=== PATIENT | male | born 1975 | race Caucasian/White ===

== ENCOUNTER 2018-02-08 18:49 | Inpatient (IN) | payer MEDICARE, OTHER ==
[2018-02-08] MEDS ORDERED: SODIUM CHLORIDE 0.9% 1,000 ML IV STA (19:03)
[2018-02-08] MEDS ORDERED: ALPRAZolam 1 MG TAB PO STA (19:17)
--- NOTE | 2018-02-08 19:17 | ED ---
General Adult HPI - General Chief complaint: Recheck/Abnormal Lab/Rx Stated complaint: jaundice Source: patient Mode of arrival: ambulatory Limitations: no limitations - History of Present Illness Initial comments: Dictation was produced using [employer] dictation software. please excuse any grammatical, word or spelling errors. Chief Complaint: 42-year-old male with past medical history hepatitis C, alcohol abuse presents with jaundice and lower abdominal cramping. History of Present Illness: It is a 42-year-old male with past medical history of hepatitis C, alcohol abuse presents with jaundice and abdominal cramping. Allegedly today patient had become severely jaundice. Patient has been free of alcohol for approximately 2 years when he relapsed back in June. Patient tricks about 5-6 beers per day. Denies any withdrawals. Patient has no pain complaints. He does feel some discomfort in his lower abdomen however. The ROS documented in this emergency department record has been reviewed and confirmed by me. Those systems with pertinent positive or negative responses have been documented in the HPI. All other systems are other negative and/or noncontributory. - Related Data Home Medications Medication Instructions Recorded Confirmed Naproxen Sodium [Aleve] 220 mg PO DAILY PRN 02/08/18 02/08/18 Allergies Allergy/AdvReac Type Severity Reaction Status Date / Time erythromycin base Allergy Rash/Hives Verified 02/08/18 19:33 lorazepam [From Ativan] AdvReac coma Verified 02/08/18 19:33 Review of Systems ROS Statement: Those systems with pertinent positive or pertinent negative responses have been documented in the HPI. ROS Other: All systems not noted in ROS Statement are negative. Past Medical History Past Medical History: GI Bleed, Hypertension, Seizure Disorder Additional Past Medical History / Comment(s): hep c History of Any Multi-Drug Resistant Organisms: MRSA Date of last positivie culture/infection: 2011 MDRO Source:: leg Past Surgical History: Orthopedic Surgery Additional Past Surgical History / Comment(s): lt knee, Past Psychological History: No Psychological Hx Reported Smoking Status: Current every day smoker Past Alcohol Use History: Daily, Heavy Past Drug Use History: None Reported General Exam - General Exam Comments Initial Comments: PHYSICAL EXAM: General Impression: Alert and oriented x3, not in acute distress, anicteric, no asterixis HEENT: Normocephalic atraumatic, extra-ocular movements intact, pupils equal and reactive to light bilaterally, mucous membranes moist. Cardiovascular: Heart regular rate and rhythm, S1&S2 audible, no murmurs, rubs or gallops Chest: Lungs clear to auscultation bilaterally, no rhonchi, no wheeze, no rales Abdomen: Bowel sounds present, abdomen soft, non-tender, non-distended, no organomegaly, positive abdominal fluid wave Musculoskeletal: Pulses present and equal in all extremities, no peripheral edema Motor: Power 5/5 bilaterally, no focal deficits noted Neurological: CN II-XII grossly intact, no focal motor or sensory deficits noted Skin: Intact with no visualized rashes Psych: Normal affect and mood Limitations: no limitations Course Vital Signs 02/08/18 18:52 Temperature 98.6 F Pulse Rate 111 H Respiratory 20 Rate Blood Pressure 167/104 O2 Sat by Pulse 98 Oximetry Medical Decision Making - Medical Decision Making ED course: 42-year-old alcoholic male with hepatitis presents with jaundice and abdominal discomfort. Vital signs upon arrival shows heart rate of 111, respiratory signs within acceptable limits. Patient feels slightly anxious. His last alcohol consumption was approximately 2 hours ago.Abdomen evaluation obtained. CBC, coag panel unremarkable. There is slight elevation in INR. Metabolic panel shows total bilirubin of 14.2 with 9.1 conjugated bilirubin. There is elevated transaminitis suggestive of alcoholic hepatitis. Urinalysis unremarkable. TB x-ray shows no acute processes. Intravenous fluids. He is moderately cardiac tachycardic. At this point is concern of EtOH withdrawals. Patient is a heavy drinker. Patient is no pain complaints. He is given Ativan for symptoms of EtOH withdrawal. Patient be admitted to medicine for further care. EKG interpretation: Ventricular rate 104, sinus tachycardia,. Interval 162, QTC 452. No IA prolongation, no QTC prolongation, no ST or T-wave changes noted. Overall, this EKG is unremarkable - Lab Data Result diagrams: 02/08/18 19:24 02/08/18 19:24 Lab Results 02/08/18 02/08/18 02/08/18 Range/Units 19:20 19:24 19:24 WBC 4.0 (3.8-10.6) k/uL RBC 4.50 (4.30-5.90) m/uL Hgb 14.6 (13.0-17.5) gm/dL Hct 44.4 (39.0-53.0) % MCV 98.7 (80.0-100.0) fL MCH 32.4 (25.0-35.0) pg MCHC 32.8 (31.0-37.0) g/dL RDW 15.2 (11.5-15.5) % Plt Count 45 L (150-450) k/uL Neutrophils % 66 % Lymphocytes % 13 % Monocytes % 12 % Eosinophils % 4 % Basophils % 1 % Neutrophils # 2.6 (1.3-7.7) k/uL Lymphocytes # 0.5 L (1.0-4.8) k/uL Monocytes # 0.5 (0-1.0) k/uL Eosinophils # 0.2 (0-0.7) k/uL Basophils # 0.0 (0-0.2) k/uL Manual Slide Review Performed Polychromasia Present PT (9.0-12.0) sec INR (<1.2) APTT (22.0-30.0) sec Sodium 143 (137-145) mmol/L Potassium 3.6 (3.5-5.1) mmol/L Chloride 104 (98-107) mmol/L Carbon Dioxide 24 (22-30) mmol/L Anion Gap 15 mmol/L BUN 10 (9-20) mg/dL Creatinine 0.63 L (0.66-1.25) mg/dL Est GFR (CKD-EPI)AfAm >90 (>60 ml/min/1.73 sqM) Est GFR (CKD-EPI)NonAf >90 (>60 ml/min/1.73 sqM) Glucose 130 H (74-99) mg/dL Plasma Lactic Acid Dario (0.7-2.0) mmol/L Calcium 8.4 (8.4-10.2) mg/dL Total Bilirubin 14.2 H (0.2-1.3) mg/dL Conjugated Bilirubin 9.1 H (0.0-0.3) mg/dL Unconjugated Bilirubin 1.9 H (0.0-1.1) mg/dL Delta Bilirubin 3.2 H (0.0-0.2) mg/dL AST 682 H (17-59) U/L ALT 279 H (21-72) U/L Alkaline Phosphatase 126 (38-126) U/L Total Protein 8.5 H (6.3-8.2) g/dL Albumin 4.2 (3.5-5.0) g/dL Amylase 75 (30-110) U/L Lipase 305 H (23-300) U/L Urine Color Yellow Urine Appearance Clear (Clear) Urine pH 7.0 (5.0-8.0) Ur Specific [place] 1.003 (1.001-1.035) Urine Protein Negative (Negative) Urine Glucose (UA) Negative (Negative) Urine Ketones Negative (Negative) Urine Blood Negative (Negative) Urine Nitrite Negative (Negative) Urine Bilirubin 1+ H (Negative) Urine Urobilinogen <2.0 (<2.0) mg/dL Ur Leukocyte Esterase Negative (Negative) 02/08/18 02/08/18 Range/Units 19:24 19:24 WBC (3.8-10.6) k/uL RBC (4.30-5.90) m/uL Hgb (13.0-17.5) gm/dL Hct (39.0-53.0) % MCV (80.0-100.0) fL MCH (25.0-35.0) pg MCHC (31.0-37.0) g/dL RDW (11.5-15.5) % Plt Count (150-450) k/uL Neutrophils % % Lymphocytes % % Monocytes % % Eosinophils % % Basophils % % Neutrophils # (1.3-7.7) k/uL Lymphocytes # (1.0-4.8) k/uL Monocytes # (0-1.0) k/uL Eosinophils # (0-0.7) k/uL Basophils # (0-0.2) k/uL Manual Slide Review Polychromasia PT 12.8 H (9.0-12.0) sec INR 1.4 H (<1.2) APTT 26.5 (22.0-30.0) sec Sodium (137-145) mmol/L Potassium (3.5-5.1) mmol/L Chloride (98-107) mmol/L Carbon Dioxide (22-30) mmol/L Anion Gap mmol/L BUN (9-20) mg/dL Creatinine (0.66-1.25) mg/dL Est GFR (CKD-EPI)AfAm (>60 ml/min/1.73 sqM) Est GFR (CKD-EPI)NonAf (>60 ml/min/1.73 sqM) Glucose (74-99) mg/dL Plasma Lactic Acid Dario 1.2 (0.7-2.0) mmol/L Calcium (8.4-10.2) mg/dL Total Bilirubin (0.2-1.3) mg/dL Conjugated Bilirubin (0.0-0.3) mg/dL Unconjugated Bilirubin (0.0-1.1) mg/dL Delta Bilirubin (0.0-0.2) mg/dL AST (17-59) U/L ALT (21-72) U/L Alkaline Phosphatase (38-126) U/L Total Protein (6.3-8.2) g/dL Albumin (3.5-5.0) g/dL Amylase (30-110) U/L Lipase (23-300) U/L Urine Color Urine Appearance (Clear) Urine pH (5.0-8.0) Ur Specific [place] (1.001-1.035) Urine Protein (Negative) Urine Glucose (UA) (Negative) Urine Ketones (Negative) Urine Blood (Negative) Urine Nitrite (Negative) Urine Bilirubin (Negative) Urine Urobilinogen (<2.0) mg/dL Ur Leukocyte Esterase (Negative) Disposition Clinical Impression: Hepatitis Disposition: ADMITTED IP TO THIS [facility] Condition: Good Referrals: None,Stated [Primary Care Provider] - 1-2 days Decision Time: 20:41
[2018-02-08 19:39] LABS: Appearance,Urine Clear (Clear); Bilirubin,Urine 1+ (Negative); Blood,Urine Negative (Negative); Color,Urine Yellow; Glucose,Urine (UA) Negative (Negative); Ketones,Urine Negative (Negative); Leukocyte Esterase,Urine Negative (Negative); Nitrite,Urine Negative (Negative); Protein,Urine Negative (Negative); Specific Gravity,Urine 1.003 (1.001-1.035); Urobilinogen,Urine <2.0 mg/dL (<2.0)
[2018-02-08 19:47] LABS: ALT 279 U/L (21-72); AST 682 U/L (17-59); Albumin 4.2 g/dL (3.5-5.0); Alkaline Phosphatase 126 U/L (38-126); Amylase 75 U/L (30-110); Anion Gap 15 mmol/L; Bilirubin, Conjugated 9.1 mg/dL (0.0-0.3); Bilirubin, Delta 3.2 mg/dL (0.0-0.2); Bilirubin,Unconjugated 1.9 mg/dL (0.0-1.1); Blood Urea Nitrogen 10 mg/dL (9-20); Calcium 8.4 mg/dL (8.4-10.2); Carbon Dioxide 24 mmol/L (22-30); Chloride 104 mmol/L (98-107); Glucose 130 mg/dL (74-99); Lipase 305 U/L (23-300); Potassium 3.6 mmol/L (3.5-5.1); Sodium 143 mmol/L (137-145); Total Bilirubin 14.2 mg/dL (0.2-1.3)
[2018-02-08 20:00] LABS: Basophils % (A) 1 %; Eosinophils # (A) 0.2 k/uL (0-0.7); Eosinophils % (A) 4 %; HCT 44.4 % (39.0-53.0); HGB 14.6 gm/dL (13.0-17.5); Lymphocytes # (A) 0.5 k/uL (1.0-4.8); Lymphocytes % (A) 13 %; MCH 32.4 pg (25.0-35.0); MCHC 32.8 g/dL (31.0-37.0); MCV 98.7 fL (80.0-100.0); Monocytes # (A) 0.5 k/uL (0-1.0); Monocytes % (A) 12 %; Neutrophils # (A) 2.6 k/uL (1.3-7.7); Neutrophils % (A) 66 %; RDW 15.2 % (11.5-15.5)
[2018-02-08 20:04] LABS: INR 1.4 (<1.2); Partial Thromboplastin Time 26.5 sec (22.0-30.0); Prothrombin Time 12.8 sec (9.0-12.0); Total Protein 8.5 g/dL (6.3-8.2)
--- NOTE | 2018-02-08 20:20 | XR ---
EXAMINATION TYPE: XR KUB DATE OF EXAM: 02/08/2018 COMPARISON: NONE HISTORY: Abdominal cramping TECHNIQUE: 2 views FINDINGS: Bowel gas pattern is normal. There is no sign of intestinal obstruction or pneumoperitoneum . Fecal pattern is normal. There are no pathologic calcifications over the kidneys. IMPRESSION: Nonacute abdomen.
[2018-02-08 20:24] LABS: Platelet Count 45 k/uL (150-450); Polychromasia Present
[2018-02-08] MEDS ORDERED: THIAMINE 100 MG/ML 2 ML VIAL IM STA (20:34)
[2018-02-08] MEDS ORDERED: LORazepam 2 MG/ML INJ IV PRN ×3 (20:34)
[2018-02-08] MEDS ORDERED: NALOXONE 0.4 MG/ML 1 ML VIAL IV PRN (20:42)
[2018-02-09] MEDS: SODIUM CHLORIDE 0.9% 1,000 ML IV SCH ×2 (02:14→10:49)
[2018-02-09] MEDS ORDERED: ONDANSETRON 4 MG/2 ML VIAL IVP PRN (08:54)
[2018-02-09] MEDS ORDERED: HALOPERIDOL LACTATE 5 MG/ML 1 ML VIAL IM PRN (09:31)
[2018-02-09 10:45] VITALS: BMI 24.2
[2018-02-09] MEDS: THIAMINE 100 MG TAB PO SCH ×2 (12:43→17:50)
[2018-02-09] MEDS: IOPAMIDOL-300 CONTRAST 30 ML VIAL (ORAL USE) PO PRN ×2 (14:31→15:32)
--- NOTE | 2018-02-09 15:28 | HP ---
HISTORY AND PHYSICAL CHIEF COMPLAINT: Jaundice. HISTORY OF PRESENT ILLNESS: Is this 42-year-old gentleman with a past medical history of multiple medical issues of hypertension, GI bleed, seizures, MRSA, not having a primary physician in the outpatient setting, had a previous history of EtOH. The patient was sober for some time but currently, patient started taking alcohol again because of multiple stressors. The patient was noted to have increasing jaundice by the fiance and the patient came to [facility] for further evaluation. Alcohol level was 172 severe level, bilirubin level was 9.1, and AST was 662 and ALT was 279. Patient admitted for further evaluation and treatment. There is no history of any fever, rigor, chills at this time. PAST MEDICAL HISTORY: History of GI bleed, hypertension, seizures, hepatitis C, MRSA. MEDICATIONS: Prior to admission home medications are Naprosyn 210 mg daily p.r.n. ALLERGIES: ERYTHROMYCIN, ATIVAN. FAMILY HISTORY: No history of heart disease or strokes in the family. SOCIAL HISTORY: Alcohol heavily and smoking, also REVIEW OF SYSTEMS: ENT: No diminished hearing or vision. CARDIOVASCULAR: No angina or palpitations. RESPIRATORY: No cough, hemoptysis. GI: No nausea. : No dysuria. NERVOUS SYSTEM: No numbness or weakness. ALLERGY/IMMUNOLOGY: No asthma or hayfever. MUSCULOSKELETAL: As mentioned earlier. HEMATOLOGY/ONCOLOGY: No history of anemia. ENDOCRINE: No history of diabetes or hypothyroidism. CONSTITUTIONAL: As mentioned earlier. DERMATOLOGY: Negative. RHEUMATOLOGY: Negative. PSYCHIATRY: As mentioned earlier. PHYSICAL EXAM: Patient is alert, oriented x3. The pulse is 77, blood pressure 140/96, respiration 18, temperature 99 degrees, pulse ox 96% on room air. HEENT: Conjunctivae normal. Oral mucosa moist, nonicteric. NECK: No jugular venous distention. No lymph node enlargement. CARDIOVASCULAR: S1, S2, muffled. RESPIRATION: Breath sounds diminished at the bases. A few scattered rhonchi, no crackles. ABDOMEN: Soft, obese, nontender. No mass palpable. No hepatosplenomegaly. No ascites. LEGS: No edema, no swelling. NERVOUS SYSTEM: Higher functions as mentioned, moves all four limbs, no focal motor deficits. LYMPHATICS: No lymph node enlargement in the neck or axillae. SKIN: No ulcer, rash, bleeding. LABS: At this time reviewed WBC is 4, hemoglobin is 4.6, and the platelets are 45. INR is 1.4. Total bilirubin is 14.2, conjugated bilirubin is 9.1, AST, ALT noted and albumin is 4.2, total protein is 8.5. ASSESSMENT: 1. Acute alcohol intoxication and withdrawal. 2. Increased AST, ALT, possibly acute alcoholic hepatitis and jaundice with increased bilirubin. 3. Rule out cirrhosis of the liver. 4. Mild coagulopathy, INR 1.50, thrombocytopenia. 5. Hypertension. 6. Seizure. 7. History of gastrointestinal bleed. 8. History hepatitis C. 9. History of methicillin-resistant Staphylococcus aureus. 10.History of degenerative joint disease. 11.Nicotine dependence, history of EtOH. RECOMMENDATION: In this 42-year-old gentleman who presented with multiple complex medical issues , will monitor the patient closely. Continue with the current management and symptomatic treatment. Will repeat the labs. Recommend a CAT scan of the abdomen and pelvis to evaluate for the jaundice. Otherwise, I would also recommend Gastroenterology evaluation. Resume guarded prognosis because of multiple complex medical issues. I would also recommend Protonix also. Further recommendations to follow. Also recommend close follow up with primary physician in the outpatient setting. Prognosis guarded. Further recommendations to follow. MMODL / IJN: [id number] / MTDD
--- NOTE | 2018-02-09 17:57 | CT ---
EXAMINATION TYPE: CT abdomen pelvis wo con DATE OF EXAM: 02/09/2018 COMPARISON: None HISTORY: jaundice, hx of cirrhosis, hep C CT DLP: 616 mGycm Automated exposure control for dose reduction was used. TECHNIQUE: Helical acquisition of images was performed from the lung bases through the pelvis. FINDINGS: Lung bases are clear. There is no pleural effusion. Heart size is normal. There is small hiatal herni a. Stomach is otherwise normal. Spleen appears normal. There is enlargement of the left lobe of the l iver. Right lobe of the liver is somewhat irregular consistent with cirrhosis. There are calcified ga llstones. Bile ducts are not dilated. There is no evidence of pancreatic mass. There is no adrenal mass. Kidneys have normal size and contour. There is no hydronephrosis. Ureters a re not dilated. There is probably a 2 mm calculus lower pole right kidney. There is no retroperitonea l adenopathy. Bladder distends smoothly. There is no inguinal hernia. There is no free fluid in the p ray. I see no intestinal wall thickening. There are no dilated loops. Appendix appears normal. Ther e is no evidence of mesenteric edema or adenopathy. Lumbar spine is intact. Bony pelvis is intact. Th ere are a few varicose veins noted in the left upper quadrant around the spleen. IMPRESSION: CHANGES IN THE LIVER CONSISTENT WITH CIRRHOSIS. THERE IS POSSIBLE PORTAL VENOUS HYPERTENSION WITH CARRIE E VARICES. CALCIFIED GALLSTONES. NO DISCRETE LIVER MASS.
--- NOTE | 2018-02-09 19:13 | HP ---
HISTORY AND PHYSICAL DATE OF SERVICE: 02/09/2018 CHIEF COMPLAINTS: Jaundice. HISTORY OF PRESENT ILLNESS: This 42-year-old gentleman with a past medical history of multiple medical problems including GI bleed, hypertension, seizures, hepatitis C, MRSA being followed by no primary service in the outpatient setting, also had history of significant EtOH. MMODL / IJN: [id number] /
[2018-02-10] MEDS: SODIUM CHLORIDE 0.9% 1,000 ML IV SCH ×3 (05:44→09:01)
[2018-02-10 08:58] LABS: ALT 270 U/L (21-72); AST 538 U/L (17-59); Albumin 4.3 g/dL (3.5-5.0); Alkaline Phosphatase 102 U/L (38-126); Anion Gap 10 mmol/L; Blood Urea Nitrogen 8 mg/dL (9-20); Calcium 9.4 mg/dL (8.4-10.2); Carbon Dioxide 26 mmol/L (22-30); Chloride 104 mmol/L (98-107); Glucose 107 mg/dL (74-99); Potassium 4.3 mmol/L (3.5-5.1); Sodium 140 mmol/L (137-145)
[2018-02-10] MEDS: NICOTINE 14MG/24HR PATCH TRANSDERM SCH (09:00)
[2018-02-10] MEDS: PANTOPRAZOLE 40 MG TABLET PO SCH (09:00)
[2018-02-10] MEDS: THIAMINE 100 MG TAB PO SCH (09:00)
[2018-02-10 09:06] LABS: INR 1.4 (<1.2); Prothrombin Time 12.7 sec (9.0-12.0)
[2018-02-10 09:15] LABS: Basophils % (A) 0 %; Eosinophils # (A) 0.2 k/uL (0-0.7); Eosinophils % (A) 4 %; HCT 48.7 % (39.0-53.0); Lymphocytes # (A) 0.6 k/uL (1.0-4.8); Lymphocytes % (A) 13 %; MCH 32.9 pg (25.0-35.0); MCHC 32.8 g/dL (31.0-37.0); MCV 100.3 fL (80.0-100.0); Macrocytosis Slight; Mean Platelet Volume 12.5; Monocytes # (A) 0.4 k/uL (0-1.0); Monocytes % (A) 9 %; Neutrophils # (A) 3.1 k/uL (1.3-7.7); Neutrophils % (A) 72 %; RBC 4.85 m/uL (4.30-5.90); RDW 15.5 % (11.5-15.5); WBC 4.3 k/uL (3.8-10.6)
[2018-02-10 09:21] LABS: Total Bilirubin 19.1 mg/dL (0.2-1.3)
[2018-02-10 09:22] LABS: Platelet Count 40 k/uL (150-450)
[2018-02-10 09:55] LABS: Large Platelets Present; Target Cells Present
[2018-02-10 09:56] LABS: Poikilocytosis (M) Present
[2018-02-10] MEDS: 1: MVI, ADULT NO.4 WITH VIT K 10 ML, THIAMINE 100 MG, FOLIC ACID 1 MG in SODIUM CHLORIDE IV SCH ×8 (12:50→21:55)
--- NOTE | 2018-02-10 17:45 | PN ---
PROGRESS NOTE DATE OF SERVICE: 02/10/2018 This 42-year-old gentleman who was admitted with acute alcohol intake. The patient also had hepatitis. No chest pain. No palpitations. No fever. Bilirubin is elevated today. Abdomen and pelvis CAT scan was also done. Gastroenterology evaluation in progress. The CT scan showed possible changes of cirrhosis of liver and portal hypertension and varices as well and some calcified gallstones also. PAST MEDICAL HISTORY: Reviewed. REVIEW OF SYSTEMS: CARDIOVASCULAR: No angina or palpitations. RESPIRATORY: As mentioned earlier. GI: As mentioned earlier. : No dysuria. CENTRAL NERVOUS SYSTEM: No focal deficits. CURRENT MEDICATIONS ARE: Reviewed and include: 2. Ativan p.r.n. 3. Narcan. 4. Habitrol 14. 5. Protonix. 6. IV medications. PHYSICAL EXAMINATION: The patient is alert, oriented x3, pulse 88, blood pressure 130/84, respiration 16, temp 98.3, pulse ox 94% on room air. HEENT: Conjunctivae icterus. Oral mucosa moist. Neck is no jugular venous distention. No carotid bruit. No lymph node enlargement. CARDIOVASCULAR SYSTEM: S1, S2 muffled. RESPIRATORY SYSTEM: Breath sounds diminished at the bases. A few scattered rhonchi. No crackles. ABDOMEN: Soft, nontender. No mass palpable. Legs: No edema. No swelling. Central nervous system: No focal deficits. LABS: WBC 4.3 and hemoglobin 16, MCV 100.3, INR is 1.4. Bilirubin is 19.1, AST is 538 and ALT is 270. ASSESSMENT: 1. Acute alcohol intoxication withdrawal. 2. Increased AST, ALT, possibly acute alcoholic hepatitis with jaundice with increased bilirubin. 3. Cirrhosis of liver with possible portal hypertension on the CT scan. 4. Mild coagulopathy, INR 1.4 secondary to chronic liver disease. 5. Thrombocytopenia. 6. Hypertension. 7. Seizure history. 8. History of gastrointestinal bleed. 9. History of hepatitis C. 10.History of Methicillin-resistant Staphylococcus aureus. 11.History of degenerative joint disease. 12.History of nicotine dependence. 13.History of EtOH. RECOMMENDATIONS AND DISCUSSION: In this 42 -year-old gentleman who presented with complex medical issues, we will continue to monitor, continue symptomatic treatment. The patient is more jaundiced today. Bilirubin has gone up, but however, INR is stable. I recommend Gastroenterology consultation, AST, ALT is still elevated. We will continue to monitor. Avoid hepatotoxic medications. Guarded prognosis because of multiple complex medical issues and further recommendations to follow. MMODL / IJN: [id number] / VALERY
--- NOTE | 2018-02-11 00:05 | CONS ---
CONSULTATION DATE OF SERVICE: 02/10/2018. REQUESTING PHYSICIAN: Dr. Gonzalez. REASON FOR CONSULTATION: Elevated LFTs and jaundice. HISTORY OF PRESENT ILLNESS: The patient is a 41-year-old white male with history of alcohol abuse in the past with prior history of esophageal variceal bleeding in 2013, history of chronic hepatitis C infection diagnosed in 1996, presents to the hospital because of jaundice that was noticed by his . The patient had history of heavy alcohol abuse in the past, but has been sober for the last 2-1/2 years. However, 6 months ago he started drinking alcohol again and was drinking at least 5 to 6 beers every day. His noticed that he was jaundiced and she brought him to the emergency room. In the ER, his lab showed alcohol level of 172, bilirubin of 9.1, AST 662, ALT 279. The patient denies any abdominal pain. Reports no nausea or vomiting. No rectal bleeding or melena. He reports having chronic hepatitis infection in 1996 and was treated with by Dr. Castillo at [facility] for 3 months, but was nonrespondent. In 2013, he had an esophageal variceal bleed for which he had upper endoscopy with variceal ligation by Dr. Shields at [facility]. PAST MEDICAL HISTORY: Significant for hypertension, chronic hepatitis C infection, esophageal variceal bleeding. PAST MEDICATIONS: At home, Naproxen as needed. ALLERGIES: ERYTHROMYCIN, ATIVAN. FAMILY HISTORY: Unremarkable. SOCIAL HISTORY: Alcohol use as mentioned above, chronic smoker. REVIEW OF SYSTEMS: CARDIOPULMONARY: No chest pain, shortness of breath. GENITOURINARY: No dysuria or hematuria. MUSCULOSKELETAL: Unremarkable. SKIN: Unremarkable. NEUROLOGY: Unremarkable. ENT/VISION: Unremarkable. CONSTITUTIONAL: No recent weight loss. No fevers, chills or night sweats. PHYSICAL EXAMINATION: GENERAL: Appears comfortable, in no apparent distress. VITAL SIGNS: Blood pressure 134/84, pulse 71, temperature 98.4. HEENT: Conjunctivae pink. Sclerae deeply icteric. Oral cavity no lesions. NECK: No JVD or lymph node enlargement. CHEST: Clear to auscultation. HEART: Regular rate and rhythm. ABDOMEN: Soft. Liver is palpable 2 cm below the left costal margin. Spleen not palpable. No ascites noted. EXTREMITIES: No pedal edema. NEURO: Alert, oriented x3. No focal deficits. SKIN: Unremarkable. LABS: Labs done at the time of admission to the hospital, WBC 4.3, hemoglobin 16.0, platelets 40,000, T-bili 14.2, AST 682, ALT 279, alkaline phosphatase 126, albumin 4.2. Amylase and lipase normal. PT 12.7, INR 1.4. IMPRESSION: The patient was admitted with alcoholic liver disease and chronic hepatitis infection diagnosed in 1996, with history of esophageal variceal bleeding in 2013. He now presents with painless jaundice and the clinical picture is very consistent with alcoholic hepatitis superimposed on chronic hepatitis infection/possible underlying liver cirrhosis. He did have a CT of the abdomen and pelvis done that was consistent with liver cirrhosis and portal venous hypertension with some varices. No evidence of biliary ductal dilation. RECOMMENDATIONS: We will obtain HCV RNA and genotype. I have addressed any questions from the patient and his at the bedside regarding acute alcoholic hepatitis, clinical implications and long-term prognosis. I also explained to them that he has underlying liver cirrhosis and will require abstinence from alcohol. At this time we will follow his labs on a daily basis. Obtain HCV RNA as well as genotype and we will consider antiviral therapy for chronic hepatitis infection on an outpatient basis. I will continue to follow this patient closely during the hospital stay. Thank you for this consultation. CADENL / CESARION: [id number] /
[2018-02-11] MEDS: PANTOPRAZOLE 40 MG TABLET PO SCH (07:34)
[2018-02-11] MEDS: 1: MVI, ADULT NO.4 WITH VIT K 10 ML, THIAMINE 100 MG, FOLIC ACID 1 MG in SODIUM CHLORIDE IV SCH ×8 (07:34→19:47)
[2018-02-11] MEDS: NICOTINE 14MG/24HR PATCH TRANSDERM SCH ×2 (07:34→07:39)
--- NOTE | 2018-02-11 07:57 | P.PN ---
Subjective Progress Note Date: 02/11/18 Principal diagnosis: Jaundice elevated liver enzymes chronic hepatitis C EtOH abuse Feels well. Afebrile. Denies abdominal pain. Tolerating diet. Inquiring about discharge. Morning chemistries pending. Objective - Vital Signs Vital signs: Vital Signs Temp 98.2 F 02/11/18 05:00 Pulse 69 02/11/18 05:00 Resp 16 02/11/18 05:00 BP 139/86 02/11/18 05:00 Pulse Ox 97 02/11/18 05:00 Intake & Output 02/10/18 02/11/18 02/11/18 18:59 06:59 18:59 Intake Total 1280 3051.2 Output Total 800 Balance 1280 2251.2 Weight 74.5 kg Intake: Intake, IV Titration 800 2211.2 Amount Mvi, Adult No.4 with Vit 200 1411.2 K 10 ml Thiamine 100 mg Folic Acid 1 mg In Sodium Chloride 0.9% 1,000 ml @ 100 mls/hr IV .BY DURATION SHALONDA Rx#: [id number] Sodium Chloride 0.9% 1, 600 800 000 ml @ 100 mls/hr IV . Q10H SHALONDA Rx#:[id number] Oral 480 840 Output: Urine 800 Other: Voiding Method Toilet Toilet Urinal Urinal # Voids 4 2 - Exam General appearance: The patient is alert, oriented, in no acute distress. Jaundice. HET: Head is normocephalic and atraumatic. Pupils are equal and reactive. Sclerae icterus. Oropharynx is clear without lesions. Neck: Supple without lymphadenopathy. Trachea midline. Heart: S1 S2. Regular rate and rhythm. Lungs: No crackles or wheezes are heard. Abdomen: Soft, nontender, nondistended with bowel sounds. No peritoneal signs. No palpable organomegaly or masses. Extremities: Normal skin color and turgor. No cyanosis, rash, ulceration, clubbing, or edema. Radial and pedal pulses are 2/4 bilaterally. Neurological: No focal deficits. Strength and sensation are grossly intact. - Labs CBC & Chem 7: 02/10/18 08:05 02/10/18 08:05 Labs: Abnormal Lab Results - Last 24 Hours (Table) 02/10/18 02/10/18 02/10/18 Range/Units 08:05 08:05 08:05 MCV 100.3 H (80.0-100.0) fL Plt Count 40 L (150-450) k/uL Lymphocytes # 0.6 L (1.0-4.8) k/uL PT 12.7 H (9.0-12.0) sec INR 1.4 H (<1.2) BUN 8 L (9-20) mg/dL Creatinine 0.52 L (0.66-1.25) mg/dL Glucose 107 H (74-99) mg/dL Total Bilirubin 19.1 H* (0.2-1.3) mg/dL AST 538 H (17-59) U/L ALT 270 H (21-72) U/L Total Protein 9.0 H (6.3-8.2) g/dL Assessment and Plan (1) Alcoholic hepatitis Narrative/Plan: 42-year-old gentleman with a history chronic hepatitis C EtOH abuse admitted with acute alcohol hepatitis jaundice underlying alcohol liver disease possible liver cirrhosis, portal hypertension. Current Visit: Yes Status: Acute Code(s): K70.10 - ALCOHOLIC HEPATITIS WITHOUT ASCITES SNOMED Code(s): 488361309 (2) H/O ETOH abuse Current Visit: Yes Status: Acute Code(s): Z87.898 - PERSONAL HISTORY OF OTHER SPECIFIED CONDITIONS SNOMED Code(s): 890823068 (3) ETOH abuse Current Visit: Yes Status: Acute Code(s): F10.10 - ALCOHOL ABUSE, UNCOMPLICATED SNOMED Code(s): 60606521 (4) Jaundice Current Visit: Yes Status: Acute Code(s): R17 - UNSPECIFIED JAUNDICE SNOMED Code(s): 78399199 (5) Chronic hepatitis C Current Visit: Yes Status: Acute Code(s): B18.2 - CHRONIC VIRAL HEPATITIS C SNOMED Code(s): 348126090 Plan: 1. Await chemistries. HCV serology pending. Discharge planning. If LFTs continue to improve INR stable agreeable for discharge. Alcohol abstinence reinforced. We'll continue to follow. Assessment and plan a care discussed with Dr. Jesus
[2018-02-11 09:02] LABS: Basophils % (A) 1 %; Eosinophils # (A) 0.2 k/uL (0-0.7); Eosinophils % (A) 4 %; HCT 51.3 % (39.0-53.0); HGB 16.4 gm/dL (13.0-17.5); Lymphocytes # (A) 0.4 k/uL (1.0-4.8); Lymphocytes % (A) 10 %; MCH 32.1 pg (25.0-35.0); MCHC 31.9 g/dL (31.0-37.0); MCV 100.8 fL (80.0-100.0); Macrocytosis Slight; Mean Platelet Volume 13.5; Monocytes # (A) 0.3 k/uL (0-1.0); Monocytes % (A) 8 %; Neutrophils # (A) 3.3 k/uL (1.3-7.7); Neutrophils % (A) 75 %; Platelet Count 49 k/uL (150-450); RDW 15.7 % (11.5-15.5); WBC 4.4 k/uL (3.8-10.6)
[2018-02-11 09:18] LABS: ALT 239 U/L (21-72); AST 427 U/L (17-59); Alkaline Phosphatase 115 U/L (38-126); Anion Gap 12 mmol/L; Blood Urea Nitrogen 10 mg/dL (9-20); Calcium 9.1 mg/dL (8.4-10.2); Carbon Dioxide 23 mmol/L (22-30); Chloride 104 mmol/L (98-107); Glucose 179 mg/dL (74-99); Potassium 4.2 mmol/L (3.5-5.1); Sodium 139 mmol/L (137-145); Total Protein 8.8 g/dL (6.3-8.2)
[2018-02-11 09:19] LABS: INR 1.4 (<1.2); Prothrombin Time 13.2 sec (9.0-12.0)
[2018-02-11 09:37] LABS: Total Bilirubin 18.2 mg/dL (0.2-1.3)
[2018-02-11 10:53] LABS: Target Cells Present
[2018-02-11 10:55] LABS: Large Platelets Present
--- NOTE | 2018-02-11 11:25 | P.PN ---
Subjective This is a pleasant 42 years old male with past medical history of seizure disorder, hepatitis C, hypertension, GI bleed, I'll call abuse. He presents because of alcohol withdrawal and his been treated with antibiotics fluids and benzodiazepines. His liver enzymes were high trending up bilirubin went up from 14 to 19. Today is 18.2. INR is stable at 1.4. Hemoglobin stable. Patient was lying in bed comfortable not in distress. No pain or tremor. No headache. No breathing difficulty he is alert awake oriented exit 3. Also with further questioning patient states he doesn't have PCP who a follow-up ultrasound patient. He denies depression or suicidal ideation. GI team are following the patient. HCV serology is pending. Objective - Vital Signs Vital signs: Vital Signs Temp 98.2 F 02/11/18 05:00 Pulse 69 02/11/18 05:00 Resp 16 02/11/18 05:00 BP 139/86 02/11/18 05:00 Pulse Ox 97 02/11/18 05:00 Intake & Output 02/10/18 02/11/18 02/11/18 18:59 06:59 18:59 Intake Total 1280 3051.2 Output Total 800 Balance 1280 2251.2 Weight 74.5 kg Intake: Intake, IV Titration 800 2211.2 Amount Mvi, Adult No.4 with Vit 200 1411.2 K 10 ml Thiamine 100 mg Folic Acid 1 mg In Sodium Chloride 0.9% 1,000 ml @ 100 mls/hr IV .BY DURATION [facility] Rx#: [id number] Sodium Chloride 0.9% 1, 600 800 000 ml @ 100 mls/hr IV . Q10H [facility] Rx#:[id number] Oral 480 840 Output: Urine 800 Other: Voiding Method Toilet Toilet Urinal Urinal # Voids 4 2 - Exam GENERAL: The patient is alert and oriented x3, not in any acute distress. Well developed, well nourished. -HEENT: Pupils are round and equally reacting to light. EOMI. No scleral icterus. No conjunctival pallor. Normocephalic, atraumatic. No pharyngeal erythema. No thyromegaly. Yellow SCLERA CARDIOVASCULAR: S1 and S2 present. No murmurs, rubs, or gallops. PULMONARY: Chest is clear to auscultation, no wheezing or crackles. ABDOMEN: Soft, nontender, nondistended, normoactive bowel sounds. No palpable organomegaly. MUSCULOSKELETAL: No joint swelling or deformity. EXTREMITIES: No cyanosis, clubbing, or pedal edema. NEUROLOGICAL: Gross neurological examination did not reveal any focal deficits. SKIN: No rashes. - Labs CBC & Chem 7: 02/11/18 08:02 02/11/18 08:02 Labs: Abnormal Lab Results - Last 24 Hours (Table) 02/11/18 02/11/18 02/11/18 Range/Units 08:02 08:02 08:02 MCV 100.8 H (80.0-100.0) fL RDW 15.7 H (11.5-15.5) % Plt Count 49 L (150-450) k/uL Lymphocytes # 0.4 L (1.0-4.8) k/uL PT 13.2 H (9.0-12.0) sec INR 1.4 H (<1.2) Creatinine 0.60 L (0.66-1.25) mg/dL Glucose 179 H (74-99) mg/dL Total Bilirubin 18.2 H* (0.2-1.3) mg/dL AST 427 H (17-59) U/L ALT 239 H (21-72) U/L Total Protein 8.8 H (6.3-8.2) g/dL Assessment and Plan Assessment: Acute alcohol intoxication/withdrawal. Resolving Elevated liver enzymes and bilirubin, trending down gradually Cirrhosis of the liver with possible portal hypertension on CAT scan Mildly elevated INR at 1.4 Thrombocytopenia Essential hypertension History of seizure History of GI bleed Hepatitis C infection History of alcohol abuse History of nicotine dependence Plan: This is a pleasant 42 male who presents because of her call withdrawal and elevated liver enzymes and bilirubin. Gastroenterology consult is appreciated. Patient continue to encourage about abstinence from alcohol.Labs and medication were reviewed.. Continue same treatment. Continue with symptomatic treatment. Resume home medication. Monitor lytes and vitals. DVT and GI prophylaxis. Further recommendations of the clinical course of the patient DVT prophylaxis: no heparin in view of his thrombocytopenia and other problems. GI Prophylaxis: Protonix PT/OT: Pending Prognosis is guarded
--- NOTE | 2018-02-11 14:53 | CDI ---
Last Revision, February 2017 Documentation Clarification Form Date: 02/11/18 From: Radha Villalobos RN, CCDS Admit Date: 02/08/2018 8:41:00 PM Patient Name: Ronal Cage Visit Number: [id number] Discharge Date: ATTENTION: The Clinical Documentation Specialists (CDI) and [employer] Coding Staff appreciate your assistance in clarifying documentation. Please respond to the clarification below the line at the bottom and electronically sign. The CDI & [employer] Coding staff will review the response and follow-up if needed. Please note: Queries are made part of the Legal Health Record. If you have any questions, please contact the author of this message via ITS. Silas Elam MD Thrombocytopenia is documented in the H/P and ongoing progress notes. Patient history/risk factors: Hepatitis C, Alcohol abuse, GI Bleed, Hypertension , Seizure disorder, Current every day smoker Clinical Indicators: Present with abnormal labs and jaundice. He drinks alcohol daily, heavy. Platelet count: 45, 40, 49 INR 1.4 Treatment: Monitor Labs Monitor lytes and vitals GI consult: Acute alcohol hepatitis with jaundice underlying alcohol liver disease possible liver cirrhosis. In your professional opinion, can the type and etiology of thrombocytopenia be further specified as one of the following, if known? Primary Thrombocytopenia Idiopathic Thrombocytopenia Secondary Thrombocytopenia Other, please specify Unable to determine Please continue to document in your progress notes and discharge summary in order to capture severity of illness and risk of mortality. Include clinical findings that support your diagnosis. most likely thrombocytopenia secondary to alcoholic liver disease MTDD
[2018-02-11 21:32] VITALS: RESP 16
[2018-02-12 05:37] VITALS: BP 134/89
[2018-02-12] MEDS: 1: MVI, ADULT NO.4 WITH VIT K 10 ML, THIAMINE 100 MG, FOLIC ACID 1 MG in SODIUM CHLORIDE IV SCH ×4 (06:05)
[2018-02-12] MEDS: NICOTINE 14MG/24HR PATCH TRANSDERM SCH (08:14)
[2018-02-12] MEDS: PANTOPRAZOLE 40 MG TABLET PO SCH (08:16)
[2018-02-12 08:57] LABS: Anisocytosis Slight; Basophils % (A) 1 %; Eosinophils # (A) 0.2 k/uL (0-0.7); Eosinophils % (A) 4 %; HCT 49.7 % (39.0-53.0); HGB 15.7 gm/dL (13.0-17.5); Lymphocytes # (A) 0.6 k/uL (1.0-4.8); Lymphocytes % (A) 13 %; MCH 32.1 pg (25.0-35.0); MCHC 31.7 g/dL (31.0-37.0); MCV 101.5 fL (80.0-100.0); Macrocytosis Slight; Mean Platelet Volume 11.3; Monocytes # (A) 0.3 k/uL (0-1.0); Monocytes % (A) 7 %; Neutrophils # (A) 3.6 k/uL (1.3-7.7); Neutrophils % (A) 73 %; Platelet Count 59 k/uL (150-450); RDW 16.4 % (11.5-15.5); WBC 4.9 k/uL (3.8-10.6)
[2018-02-12 09:10] LABS: INR 1.3 (<1.2); Prothrombin Time 13.4 sec (9.0-12.0)
[2018-02-12 09:14] LABS: Bilirubin, Conjugated 10.3 mg/dL (0.0-0.3); Bilirubin, Delta 5.1 mg/dL (0.0-0.2); Bilirubin,Unconjugated 2.7 mg/dL (0.0-1.1)
[2018-02-12 09:17] LABS: Total Bilirubin 18.1 mg/dL (0.2-1.3); Total Protein 8.8 g/dL (6.3-8.2)
--- NOTE | 2018-02-12 10:52 | P.PN ---
Subjective This is a pleasant 42 years old male with past medical history of seizure disorder, hepatitis C, hypertension, GI bleed, I'll call abuse. He presents because of alcohol withdrawal and his been treated with antibiotics fluids and benzodiazepines. His liver enzymes were high trending up bilirubin went up from 14 to 19. Today is 18.2. INR is stable at 1.4. Hemoglobin stable. Patient was lying in bed comfortable not in distress. No pain or tremor. No headache. No breathing difficulty he is alert awake oriented exit 3. Also with further questioning patient states he doesn't have PCP who a follow-up ultrasound patient. He denies depression or suicidal ideation. GI team are following the patient. HCV serology is pending. 02/12/2018 Patient is lying in bed with no chest pain or dyspnea. Patient denies abdominal pain. No nausea vomiting. Patient is starts in diet and has regular bowel movements. Patient states he did not need any ativan. As per [facility]WA protocol over the last 2 days. His INR today is 1.3 compared to 1.4 yesterday. However liver function tests showing bilirubin at the same level of yesterday at 18.1. Of which 10.3 is conjugated and 2.7 is unconjugated. AST 366 and ALT 220. GI team R following the case. Objective - Vital Signs Vital signs: Vital Signs Temp 98.1 F 02/12/18 05:00 Pulse 71 02/12/18 05:00 Resp 16 02/12/18 05:00 BP 134/89 02/12/18 05:00 Pulse Ox 97 02/12/18 05:00 Intake & Output 02/11/18 02/12/18 02/12/18 18:59 06:59 18:59 Intake Total 2811.2 1140 480 Output Total 1650 400 Balance 2811.2 -510 80 Weight 74.5 kg 74.5 kg Intake: IV 800 Mvi, Adult No.4 with Vit 800 K 10 ml Thiamine 100 mg Folic Acid 1 mg In Sodium Chloride 0.9% 1,000 ml @ 100 mls/hr IV .BY DURATION [facility] Rx#: [id number] Intake, IV Titration 2010.2 Amount Mvi, Adult No.4 with Vit 1011.2 K 10 ml Thiamine 100 mg Folic Acid 1 mg In Sodium Chloride 0.9% 1,000 ml @ 100 mls/hr IV .BY DURATION [facility] Rx#: [id number] Sodium Chloride 0.9% 1, 1000 000 ml @ 100 mls/hr IV . BY DURATION [facility] Rx#: [id number] Oral 1140 480 Output: Urine 1650 400 Other: Voiding Method Toilet Toilet Toilet Urinal Urinal Urinal # Voids 2 - Exam GENERAL: The patient is alert and oriented x3, not in any acute distress. Well developed, well nourished. -HEENT: Pupils are round and equally reacting to light. EOMI. No scleral icterus. No conjunctival pallor. Normocephalic, atraumatic. No pharyngeal erythema. No thyromegaly. Yellow SCLERA CARDIOVASCULAR: S1 and S2 present. No murmurs, rubs, or gallops. PULMONARY: Chest is clear to auscultation, no wheezing or crackles. ABDOMEN: Soft, nontender, nondistended, normoactive bowel sounds. No palpable organomegaly. MUSCULOSKELETAL: No joint swelling or deformity. EXTREMITIES: No cyanosis, clubbing, or pedal edema. NEUROLOGICAL: Gross neurological examination did not reveal any focal deficits. SKIN: No rashes. - Labs CBC & Chem 7: 02/12/18 08:14 02/11/18 08:02 Labs: Abnormal Lab Results - Last 24 Hours (Table) 02/11/18 02/12/18 02/12/18 Range/Units 08:02 08:14 08:14 MCV 100.8 H 101.5 H (80.0-100.0) fL RDW 15.7 H 16.4 H (11.5-15.5) % Plt Count 49 L (150-450) k/uL Lymphocytes # 0.4 L (1.0-4.8) k/uL PT 13.4 H (9.0-12.0) sec INR 1.3 H (<1.2) Total Bilirubin (0.2-1.3) mg/dL Conjugated Bilirubin (0.0-0.3) mg/dL Unconjugated Bilirubin (0.0-1.1) mg/dL Delta Bilirubin (0.0-0.2) mg/dL AST (17-59) U/L ALT (21-72) U/L Total Protein (6.3-8.2) g/dL 12/06/18 Range/Units 08:14 MCV (80.0-100.0) fL RDW (11.5-15.5) % Plt Count (150-450) k/uL Lymphocytes # (1.0-4.8) k/uL PT (9.0-12.0) sec INR (<1.2) Total Bilirubin 18.1 H* (0.2-1.3) mg/dL Conjugated Bilirubin 10.3 H (0.0-0.3) mg/dL Unconjugated Bilirubin 2.7 H (0.0-1.1) mg/dL Delta Bilirubin 5.1 H (0.0-0.2) mg/dL AST 366 H (17-59) U/L ALT 220 H (21-72) U/L Total Protein 8.8 H (6.3-8.2) g/dL Assessment and Plan Assessment: Acute alcohol intoxication/withdrawal. Resolving Elevated liver enzymes and bilirubin, trending down gradually Cirrhosis of the liver with possible portal hypertension on CAT scan Mildly elevated INR at 1.4 Thrombocytopenia Essential hypertension History of seizure History of GI bleed Hepatitis C infection History of alcohol abuse History of nicotine dependence Plan: This is a pleasant 42 male who presents because of her call withdrawal and elevated liver enzymes and bilirubin. Gastroenterology consult is appreciated. Patient continue to encourage about abstinence from alcohol.Labs and medication were reviewed.. Continue same treatment. Continue with symptomatic treatment. Resume home medication. Monitor lytes and vitals. DVT and GI prophylaxis. Further recommendations of the clinical course of the patient DVT prophylaxis: no heparin in view of his thrombocytopenia and other problems. GI Prophylaxis: Protonix PT/OT: Pending Prognosis is guarded
[2018-02-12 10:55] LABS: Large Platelets Present; Target Cells Present
--- NOTE | 2018-02-12 11:20 | P.PN ---
Subjective Progress Note Date: 02/12/18 Principal diagnosis: Jaundice elevated liver enzymes chronic hepatitis C EtOH abuse Feels well. Afebrile. Denies abdominal pain. Tolerating diet. Inquiring about discharge. Total bilirubin 18.1 slightly improved from yesterday 18.2. Transaminases slightly improved AST 366. ALT 220. AP 118. INR improved 1.3 from 1.4 yesterday. Objective - Vital Signs Vital signs: Vital Signs Temp 98.1 F 02/12/18 05:00 Pulse 71 02/12/18 05:00 Resp 16 02/12/18 05:00 BP 134/89 02/12/18 05:00 Pulse Ox 97 02/12/18 05:00 Intake & Output 02/11/18 02/12/18 02/12/18 18:59 06:59 18:59 Intake Total 2811.2 1140 480 Output Total 1650 400 Balance 2811.2 -510 80 Weight 74.5 kg 74.5 kg Intake: IV 800 Mvi, Adult No.4 with Vit 800 K 10 ml Thiamine 100 mg Folic Acid 1 mg In Sodium Chloride 0.9% 1,000 ml @ 100 mls/hr IV .BY DURATION [facility] Rx#: [id number] Intake, IV Titration 2011.2 Amount Mvi, Adult No.4 with Vit 1011.2 K 10 ml Thiamine 100 mg Folic Acid 1 mg In Sodium Chloride 0.9% 1,000 ml @ 100 mls/hr IV .BY DURATION [facility] Rx#: [id number] Sodium Chloride 0.9% 1, 1000 000 ml @ 100 mls/hr IV . BY DURATION [facility] Rx#: [id number] Oral 1140 480 Output: Urine 1650 400 Other: Voiding Method Toilet Toilet Toilet Urinal Urinal Urinal # Voids 2 - Exam General appearance: The patient is alert, oriented, in no acute distress. Jaundice. HET: Head is normocephalic and atraumatic. Pupils are equal and reactive. Sclerae icterus. Oropharynx is clear without lesions. Neck: Supple without lymphadenopathy. Trachea midline. Heart: S1 S2. Regular rate and rhythm. Lungs: No crackles or wheezes are heard. Abdomen: Soft, nontender, nondistended with bowel sounds. No peritoneal signs. No palpable organomegaly or masses. Extremities: Normal skin color and turgor. No cyanosis, rash, ulceration, clubbing, or edema. Radial and pedal pulses are 2/4 bilaterally. Neurological: No focal deficits. Strength and sensation are grossly intact. - Labs CBC & Chem 7: 02/12/18 08:14 02/11/18 08:02 Labs: Abnormal Lab Results - Last 24 Hours (Table) 02/12/18 02/12/18 02/12/18 Range/Units 08:14 08:14 08:14 MCV 101.5 H (80.0-100.0) fL RDW 16.4 H (11.5-15.5) % Plt Count 59 L (150-450) k/uL Lymphocytes # 0.6 L (1.0-4.8) k/uL PT 13.4 H (9.0-12.0) sec INR 1.3 H (<1.2) Total Bilirubin 18.1 H* (0.2-1.3) mg/dL Conjugated Bilirubin 10.3 H (0.0-0.3) mg/dL Unconjugated Bilirubin 2.7 H (0.0-1.1) mg/dL Delta Bilirubin 5.1 H (0.0-0.2) mg/dL AST 366 H (17-59) U/L ALT 220 H (21-72) U/L Total Protein 8.8 H (6.3-8.2) g/dL Assessment and Plan (1) Alcoholic hepatitis Narrative/Plan: 42-year-old gentleman with a history chronic hepatitis C EtOH abuse admitted with acute alcohol hepatitis jaundice underlying alcohol liver disease possible liver cirrhosis, portal hypertension. MDF score 24. Current Visit: Yes Status: Acute Code(s): K70.10 - ALCOHOLIC HEPATITIS WITHOUT ASCITES SNOMED Code(s): 556715468 (2) H/O ETOH abuse Current Visit: Yes Status: Acute Code(s): Z87.898 - PERSONAL HISTORY OF OTHER SPECIFIED CONDITIONS SNOMED Code(s): 574889088 (3) ETOH abuse Current Visit: Yes Status: Acute Code(s): F10.10 - ALCOHOL ABUSE, UNCOMPLICATED SNOMED Code(s): 00876747 (4) Jaundice Current Visit: Yes Status: Acute Code(s): R17 - UNSPECIFIED JAUNDICE SNOMED Code(s): 35407225 (5) Chronic hepatitis C Current Visit: Yes Status: Acute Code(s): B18.2 - CHRONIC VIRAL HEPATITIS C SNOMED Code(s): 506894254 Plan: 1. HCV serology pending. MDF 24; therefore no steroids. Agreeable for discharge from a GI standpoint return to office Friday CMP in 2-3 days. Alcohol abstinence reinforced. We'll continue to follow. Assessment and plan a care discussed with Dr. Jesus
[2018-02-12 12:26] VITALS: PULSE 85; TEMP 98.6
--- NOTE | 2018-02-12 12:47 | P.DS ---
Providers Date of admission: 02/08/18 20:41 Attending physician: Michaela Hanson Consults: 02/09/18 13:38 Consult Physician Routine Consulting Provider: Wilian Medrano Consult Reason/Comments: hepatitis Do you want consulting provider notified?: Yes Primary care physician: Stated None Hospital Course: This is a pleasant 42 years old male with past medical history of seizure disorder, hepatitis C, hypertension, GI bleed, alcohol abuse. He presents because of alcohol withdrawal and his been treated with fluids and benzodiazepines. He showed interval improvement and over the last 2 days he did not need any Ativan for withdrawal symptoms. His liver enzymes were high and slowly trending down, as well as bilirubin went up from 14 to 19. Over the last 2 days it is 18.2 and 18.1. INR is stable at 1.4 and today is 1.3. Hemoglobin stable. Patient was lying in bed comfortable not in distress. No pain or tremor. No headache. No breathing difficulty he is alert awake oriented exit 3. And he denies any other symptoms, patient feels no different from his normal and he wants to go home from yesterday. I discussed the case with the GI team and they agree for discharge and the patient. Prescription is provided by them for CMP and INR to be done on this coming Friday and he has an appointment with Dr. Jesus on this coming Friday. Patient informed and he said he is going to follow the satisfaction of blood test and Dr. Jesus appointments. HCV serology is pending, she is aware and instructed to follow up with GI team. Also with further questioning patient states he doesn't have PCP . Contact information for Dr. Joyner was provided for the patient and instructed to call and make an appointment in 1 week and he agrees. He denies depression or suicidal ideation. Besides he looks pleasant. Patient was cleared by GI team for discharge. Problems and management plan was discussed with the patient in details and he verbalized understanding and acceptance. Patient was found stable and can be discharged home however he needs follow-up as an outpatient and he agrees. Please refer to my note from today for physical examination Time spent more than 35 minutes Patient Condition at Discharge: Good Plan - Discharge Summary Discharge Rx Participant: No New Discharge Prescriptions: Epifanio Pantoprazole [Protonix] 40 mg PO -BRKFST #30 tablet. Thiamine [Vitamin B-1] 100 mg PO DAILY #30 tab Discontinued Naproxen Sodium [Aleve] 220 mg PO DAILY PRN PRN Reason: Pain Discharge Medication List Pantoprazole [Protonix] 40 mg PO JUAN PABLO-MARKELLKFST #30 tablet. 02/12/18 [Rx] Thiamine [Vitamin B-1] 100 mg PO DAILY #30 tab 02/12/18 [Rx] Follow up Appointment(s)/Referral(s): Radha Harris MD [REFERRING] - 1 Week Steffany Jesus MD [STAFF PHYSICIAN] - 02/16/18 11:45 am Ambulatory/Diagnostic Orders: Comprehensive Metabolic Panel [LAB.AMB] Time Frame: 2 Days, Location: None Selected Prothrombin Time INR [LAB.AMB] Time Frame: 2 Days, Location: None Selected Patient Instructions/Handouts: Cirrhosis (DC), Abuse of Alcohol (DC), Jaundice (DC), Alcoholic Hepatitis (DC) Activity/Diet/Wound Care/Special Instructions: cardiac diet activity is limited till you see your doctor go on this coming friday for blood work and f/u with Dr. Jesus on this Friday ( you have appointment ) Discharge Disposition: HOME SELF-CARE
[2018-02-12 19:40] LABS: Hepatitis A Antibody IgM Non-Reactive (Non-Reactive)
== END 2018-02-12 17:00 | disposition home or self-care (01) | DRG 897 ==
LOC: EC 18:49 → 3NMEDONC 20:41
PROVIDERS: ADMIT Internal Medicine; ATTEND Internal Medicine
DX: F10.239 Alcohol dependence with withdrawal, unspecified (principal); D68.4 Acquired coagulation factor deficiency; K76.6 Portal hypertension; B18.2 Chronic viral hepatitis C; D69.6 Thrombocytopenia, unspecified; F10.229 Alcohol dependence with intoxication, unspecified; F17.200 Nicotine dependence, unspecified, uncomplicated; G40.909 Epilepsy, unspecified, not intractable, without status epilepticus; I10 Essential (primary) hypertension; K70.10 Alcoholic hepatitis without ascites; K74.60 Unspecified cirrhosis of liver; Y90.6 Blood alcohol level of 120-199 mg/100 ml; Z86.14 Personal history of Methicillin resistant Staphylococcus aureus infection; Z79.899 Other long term (current) drug therapy
CPT/HCPCS: 36415; 74018; 74176; 80053; 80076; 80320; 81003; 82105; 82150; 82248; 83605; 83690; 85025; 85610; 85730; 86709; 87340; 87522; 93005; 96360; 96361; 96372; 99285

== ENCOUNTER → 2018-02-15 | Outpatient (CLI) | payer MEDICARE, OTHER ==
[2018-02-15 12:07] LABS: INR 1.3 (<1.2); Prothrombin Time 13.5 sec (9.0-12.0)
[2018-02-16 10:52] LABS: Albumin 3.7 g/dL (3.80-4.90); Albumin/Globulin Ratio 1.28 (1.20-2.10); Anion Gap 7.6 mmol/L (4.00-12.00); Calcium 8.3 mg/dL (8.7-10.3); Carbon Dioxide 23.4 mmol/L (21.6-31.8); Globulin 2.9 g/dL (2.1-3.7); Potassium 3.8 mmol/L (3.5-5.5); Total Protein 6.6 g/dL (6.2-8.2)
[2018-02-17 12:46] LABS: Total Bilirubin 15.9 mg/dL (0.2-1.2)
== END ==
LOC: LABMAIN 11:35
PROVIDERS: ATTEND Internal Medicine Gastroenterology
DX: K75.9 Inflammatory liver disease, unspecified (principal); D68.9 Coagulation defect, unspecified
CPT/HCPCS: 36415; 80053; 85610

== ENCOUNTER → 2018-02-22 | Outpatient (CLI) | payer MEDICARE, OTHER | END | disposition home or self-care (01) | LOC: LABMAIN 12:08 | PROVIDERS: ATTEND Internal Medicine Gastroenterology | DX: Z53.9 Procedure and treatment not carried out, unspecified reason (principal) ==

== ENCOUNTER → 2018-03-21 | Outpatient (CLI) | payer MEDICARE, OTHER ==
[2018-03-21 11:22] LABS: INR 1.2 (<1.2); Prothrombin Time 12.6 sec (9.0-12.0)
[2018-03-21 11:23] LABS: Basophils % (A) 1 %; Eosinophils # (A) 0.3 k/uL (0-0.7); Eosinophils % (A) 8 %; HCT 44.9 % (39.0-53.0); HGB 14.3 gm/dL (13.0-17.5); Lymphocytes # (A) 0.6 k/uL (1.0-4.8); Lymphocytes % (A) 18 %; MCHC 31.9 g/dL (31.0-37.0); MCV 103.4 fL (80.0-100.0); Macrocytosis Slight; Monocytes # (A) 0.2 k/uL (0-1.0); Monocytes % (A) 6 %; Neutrophils # (A) 2.1 k/uL (1.3-7.7); Neutrophils % (A) 66 %; RBC 4.34 m/uL (4.30-5.90); RDW 15.5 % (11.5-15.5); WBC 3.2 k/uL (3.8-10.6)
[2018-03-21 11:34] LABS: Platelet Count 88 k/uL (150-450)
[2018-03-21 17:23] LABS: Albumin 3.1 g/dL (3.80-4.90); Albumin/Globulin Ratio 0.94 (1.20-2.10); Calcium 8.3 mg/dL (8.7-10.3); Globulin 3.3 g/dL (1.6-3.3); Potassium 3.9 mmol/L (3.5-5.5); Total Protein 6.4 g/dL (6.2-8.2)
== END | disposition home or self-care (01) ==
LOC: LABWHC1 10:53
PROVIDERS: ATTEND Internal Medicine Gastroenterology
DX: B18.2 Chronic viral hepatitis C (principal)
CPT/HCPCS: 36415; 80053; 85025; 85610; 87522

== ENCOUNTER 2018-04-08 09:51 | Day surgery (SDC) | payer MEDICARE, OTHER ==
[2018-04-08 11:04] VITALS: RESP 16; TEMP 97.6
[2018-04-08] MEDS ORDERED: LACTATED RINGERS 1,000 ML IV ONE (11:04)
[2018-04-08] MEDS ORDERED: LIDOCAINE 1% 20 ML VIAL (10MG/ML) FOR IV START INTRADERMA ONE (11:05)
[2018-04-08] MEDS ORDERED: PROPOFOL 10 MG/ML 20 ML VIAL IV ONE (12:11)
[2018-04-08] MEDS ORDERED: LACTATED RINGERS 1,000 ML IV SCH (12:19)
--- NOTE | 2018-04-08 12:22 | P.PCN ---
Date of Procedure: 04/08/18 Procedure(s) Performed: BRIEF HISTORY: Patient is a 42-year-old, pleasant, male, scheduled for an upper endoscopy as a part of screening for esophageal varices. He has history of cirrhosis of the liver related to alcohol use. He has history of esophageal variceal bleeding in the past for which underwent variceal ligation several years ago. PROCEDURE PERFORMED: Esophagogastroduodenoscopy with biopsy. PREOPERATIVE DIAGNOSIS:[Alcoholic cirrhosis of the liver and prior history of esophageal variceal bleed IV sedation per anesthesia. PROCEDURE: After informed consent was obtained, the patient was brought into the endoscopy unit. IV sedation was administered by Anesthesia under continuous monitoring. Initially the Olympus GIF-140 video endoscope was inserted into the mouth. Esophagus intubated without any difficulty. It was gradually advanced into the stomach and duodenum and carefully examined. The bulb and the second part of the duodenum appeared normal. The scope at this time was withdrawn to the stomach, adequately insufflated with air, and upon careful examination, mucosa of the antrum, hadn't the gastritis as well as small gastric polyps which were biopsied. The body, cardia and the fundus appeared normal. The scope was then withdrawn into the esophagus. The GE junction was located at 39 cm from the incisors. The esophagus appeared normal. There were no erosions or ulcerations seen. There was small esophageal varices seen and the patient tolerated the procedure well. IMPRESSION: 1, Gastric antral polyps status post biopsy. 2. Small esophageal varices. RECOMMENDATIONS: The findings of this examination were discussed with the patient as well as his family. He was advised to have a repeat screening upper endoscopy in 2-3 years.
[2018-04-08 12:43] VITALS: BP 119/75; PULSE 76
== END 2018-04-08 12:50 | disposition home or self-care (01) ==
LOC: ORWHC2ENDO 09:51
PROVIDERS: ATTEND Internal Medicine Gastroenterology
DX: K29.51 Unspecified chronic gastritis with bleeding (principal); K70.30 Alcoholic cirrhosis of liver without ascites; I85.10 Secondary esophageal varices without bleeding; K21.9 Gastro-esophageal reflux disease without esophagitis; I10 Essential (primary) hypertension; Z88.8 Allergy status to other drugs, medicaments and biological substances; Z88.1 Allergy status to other antibiotic agents; Z79.899 Other long term (current) drug therapy; Z86.19 Personal history of other infectious and parasitic diseases
CPT/HCPCS: 43239; 88305

== ENCOUNTER → 2018-05-01 | Outpatient (CLI) | payer MEDICARE, OTHER ==
[2018-05-01 13:11] LABS: Basophils % (A) 1 %; Eosinophils # (A) 0.3 k/uL (0-0.7); Eosinophils % (A) 7 %; HCT 40.9 % (39.0-53.0); HGB 14.1 gm/dL (13.0-17.5); Lymphocytes # (A) 0.6 k/uL (1.0-4.8); Lymphocytes % (A) 16 %; MCH 35.1 pg (25.0-35.0); MCHC 34.5 g/dL (31.0-37.0); MCV 101.7 fL (80.0-100.0); Macrocytosis Slight; Mean Platelet Volume 9.9; Monocytes # (A) 0.4 k/uL (0-1.0); Monocytes % (A) 10 %; Neutrophils # (A) 2.4 k/uL (1.3-7.7); Neutrophils % (A) 64 %; RBC 4.03 m/uL (4.30-5.90); RDW 13.5 % (11.5-15.5); WBC 3.8 k/uL (3.8-10.6)
[2018-05-01 13:16] LABS: Platelet Count 75 k/uL (150-450)
[2018-05-01 13:28] LABS: INR 1.1 (<1.2); Prothrombin Time 11.7 sec (9.0-12.0)
[2018-05-01 18:44] LABS: Albumin 3.5 g/dL (3.80-4.90); Albumin/Globulin Ratio 1.21 (1.60-3.17); Anion Gap 9.1 mmol/L (4.00-12.00); Carbon Dioxide 25.9 mmol/L (21.6-31.8); Globulin 2.9 g/dL (1.6-3.3); Potassium 4.2 mmol/L (3.5-5.5); Total Bilirubin 1.7 mg/dL (0.2-1.2); Total Protein 6.4 g/dL (6.2-8.2)
== END | disposition home or self-care (01) ==
LOC: LABWHC1 12:12
PROVIDERS: ATTEND Internal Medicine Gastroenterology
DX: B18.2 Chronic viral hepatitis C (principal)
CPT/HCPCS: 36415; 80053; 85025; 85610

== ENCOUNTER → 2018-08-04 | Outpatient (CLI) | payer MEDICARE, OTHER ==
[2018-08-04 11:33] LABS: INR 1.1 (<1.2); Prothrombin Time 11.4 sec (9.0-12.0)
[2018-08-04 12:56] LABS: Basophils % (A) 1 %; Eosinophils # (A) 0.2 k/uL (0-0.7); Eosinophils % (A) 6 %; HCT 44.6 % (39.0-53.0); HGB 15.1 gm/dL (13.0-17.5); Lymphocytes # (A) 0.7 k/uL (1.0-4.8); Lymphocytes % (A) 20 %; MCH 31.3 pg (25.0-35.0); MCHC 33.9 g/dL (31.0-37.0); MCV 92.4 fL (80.0-100.0); Mean Platelet Volume 10.5; Monocytes # (A) 0.4 k/uL (0-1.0); Monocytes % (A) 11 %; Neutrophils # (A) 2.1 k/uL (1.3-7.7); Neutrophils % (A) 61 %; RBC 4.82 m/uL (4.30-5.90); RDW 14.4 % (11.5-15.5); WBC 3.5 k/uL (3.8-10.6)
[2018-08-04 13:52] LABS: Platelet Count 87 k/uL (150-450)
[2018-08-04 15:58] LABS: Albumin 4.3 g/dL (3.80-4.90); Albumin/Globulin Ratio 1.59 (1.60-3.17); Anion Gap 6.4 mmol/L (4.00-12.00); Calcium 9.5 mg/dL (8.7-10.3); Carbon Dioxide 25.6 mmol/L (21.6-31.8); Globulin 2.7 g/dL (1.6-3.3); Potassium 4.5 mmol/L (3.5-5.5); Total Bilirubin 1.1 mg/dL (0.2-1.2)
== END ==
LOC: LABWHC1 10:30
PROVIDERS: ATTEND Internal Medicine Gastroenterology
DX: B18.2 Chronic viral hepatitis C (principal)
CPT/HCPCS: 36415; 80053; 82105; 85025; 85610

== ENCOUNTER → 2018-08-17 | Outpatient (CLI) | payer MEDICARE, OTHER ==
--- NOTE | 2018-08-17 09:17 | US ---
EXAMINATION TYPE: US liver DATE OF EXAM: 08/17/2018 COMPARISON: NONE CLINICAL HISTORY: Alcoholic cirrhosis K70.3. EXAM MEASUREMENTS: Liver Length: 14.9 cm Gallbladder Wall: 0.4 cm CBD: 0.4 cm Right Kidney: 10.8 x 5.4 x 5.2 cm Pancreas: Tail obscured by overlying bowel gas Liver: There is a cirrhotic morphology of the liver with diffuse heterogeneity and nodular contour. T here is also an enlarged caudate lobe and prominence of the inferior vena cava. Hyperechoic band infe rior liver, likely extracapsular fat along the right hemidiaphragm. Gallbladder: cholelithiasis, wall slightly thick Evidence for sonographic Thompson's sign: no CBD: wnl Right Kidney: Inferior pole obscured by overlying bowel gas IMPRESSION: 1. Cirrhotic morphology of liver with no focal mass identified on the current examination. However sc reening MRI could be performed in this high-risk patient for hepatoma. 2. Hyperechoic band noted by the combat engineer at the posterior liver margin when correlated with the p rior CT likely relates to fat situated between the liver capsule and hemidiaphragm however could be f urther evaluated with CT if there is concern for subcapsular fluid collection or hematoma. 3. Cholelithiasis. Gallbladder wall thickening is likely secondary to the adjacent hepatocellular dis ease.
== END | disposition home or self-care (01) ==
LOC: RADUSWWP 08:26
PROVIDERS: ATTEND Internal Medicine Gastroenterology
DX: K82.8 Other specified diseases of gallbladder (principal); K74.60 Unspecified cirrhosis of liver
CPT/HCPCS: 76705

== ENCOUNTER → 2019-01-27 | Outpatient (CLI) | payer MEDICARE, OTHER ==
[2019-01-27 09:34] LABS: Basophils % (A) 1 %; Eosinophils # (A) 0.2 k/uL (0-0.7); Eosinophils % (A) 5 %; HCT 42.5 % (39.0-53.0); Lymphocytes # (A) 0.5 k/uL (1.0-4.8); Lymphocytes % (A) 15 %; MCH 32.7 pg (25.0-35.0); MCHC 35.4 g/dL (31.0-37.0); MCV 92.4 fL (80.0-100.0); Mean Platelet Volume 8.2; Monocytes # (A) 0.3 k/uL (0-1.0); Monocytes % (A) 7 %; Neutrophils # (A) 2.5 k/uL (1.3-7.7); Neutrophils % (A) 71 %; Platelet Count 86 k/uL (150-450); RDW 12.9 % (11.5-15.5); WBC 3.5 k/uL (3.8-10.6)
[2019-01-27 16:01] LABS: Albumin 4.3 g/dL (3.80-4.90); Albumin/Globulin Ratio 1.72 (1.60-3.17); Bilirubin, Conjugated 0.2 mg/dL (0.20-0.40); Bilirubin,Unconjugated 0.4 mg/dL; Globulin 2.5 g/dL (1.6-3.3); Total Bilirubin 0.6 mg/dL (0.2-1.2); Total Protein 6.8 g/dL (6.2-8.2)
[2019-01-28 15:27] LABS: Hepatits C Virus RNA DETECTED (Not detected); Hepatits C Virus RNA, Quant 28 IU/mL (<12); LOG HCV IU/mL 1.45 (<1.08)
== END | disposition home or self-care (01) ==
LOC: LABWHC1 08:46
PROVIDERS: ATTEND Physician Assistant
DX: B18.2 Chronic viral hepatitis C (principal)
CPT/HCPCS: 36415; 80076; 85025; 87522

== ENCOUNTER → 2019-02-25 | Outpatient (CLI) | payer MEDICARE, OTHER ==
--- NOTE | 2019-02-25 16:07 | MR ---
EXAMINATION TYPE: MR liver wo/w con DATE OF EXAM: 02/25/2019 COMPARISON: CT dated 02/09/2018 of the abdomen and pelvis and ultrasound of the liver dated 08/17/2018 HISTORY: Elevated alphafetoprotein, Hepatitis C CONTRAST: Standard multiplanar, multisequence MRI departmental protocol utilizing 7.5 mL intravenous Gadavist g adolinium contrast. FINDINGS: There is some patient motion slightly limiting the examination. There is a cirrhotic morphology of the liver. There is hypertrophy of the caudate lobe. A bandlike ar ea of delayed enhancement representing fibrosis is seen in the right hepatic lobe in segment 8 with c apsular retraction. There is abnormal enhancement in the caudate lobe measuring approximately 2.4 x 3 .0 cm placental associated T2 signal abnormality. On precontrast imaging this appears hypointense wit h a more infiltrative pattern rather than a focal mass. Similar pattern of enhancement is seen within the left lobe of the liver just anterior to the caudate lobe. Both areas of enhancement are marked o n arterial phase series 801 image 366 and delayed image 375. Reticular delayed enhancement is seen wi th some punctate internal foci of washout. Right hepatic lobe subcapsular reticular T2 hyperintensity on delayed images has persistent enhancement corresponding to fibrosis. Diffuse reticular pattern th roughout the lung also represents fibrosis and numerous regenerative nodules are seen. There are multiple nonenhancing punctate foci in the spleen, typically siderotic nodules of cirrhosis . The spleen is within normal limits of size measuring 12.1 cm. There are however splenic varices valentino r the splenic hilum. Portal vein is upper limits of normal size. 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 The adrenal glands, pancreas, spleen, and kidn eys have unremarkable enhancement and morphology. The lung bases are well aerated. No ascites is seen . Cholelithiasis is noted. Minimal degenerative change of the spine. No dilated large or small bowel. No discrete adenopathy in the abdomen. IMPRESSION: 1. 2 areas of abnormal enhancement with an infiltrative appearance in the caudate lobe and left hepat ic lobe. Focused biopsy of the caudate lobe area would be difficult to perform given its location. Co nsideration could be given to CT biopsy at the approximate location of the left hepatic lobe area of abnormal enhancement. This may also be difficult however. 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 3. Cirrhotic morphology of the liver, portal venous hypertension, regenerative nodules of the liver a nd siderotic nodules of the spleen, and multifocal fibrosis of the liver. No ascites.
== END | disposition home or self-care (01) ==
LOC: RADMRIMAIN 11:48
PROVIDERS: ATTEND Internal Medicine Gastroenterology
DX: K74.69 Other cirrhosis of liver (principal); K76.89 Other specified diseases of liver; K76.6 Portal hypertension; K74.0 Hepatic fibrosis; R93.3 Abnormal findings on diagnostic imaging of other parts of digestive tract
CPT/HCPCS: 74183; A9585

== ENCOUNTER → 2019-04-29 | Outpatient (CLI) | payer MEDICARE, OTHER ==
[2019-04-29 13:11] LABS: Basophils % (A) 0 %; Eosinophils # (A) 0.2 k/uL (0-0.7); Eosinophils % (A) 4 %; HCT 46.7 % (39.0-53.0); HGB 15.5 gm/dL (13.0-17.5); Lymphocytes # (A) 0.8 k/uL (1.0-4.8); Lymphocytes % (A) 18 %; MCHC 33.1 g/dL (31.0-37.0); MCV 93.7 fL (80.0-100.0); Mean Platelet Volume 10.6; Monocytes # (A) 0.4 k/uL (0-1.0); Monocytes % (A) 8 %; Neutrophils # (A) 2.9 k/uL (1.3-7.7); Neutrophils % (A) 67 %; Platelet Count 93 k/uL (150-450); RBC 4.99 m/uL (4.30-5.90); RDW 13.3 % (11.5-15.5); WBC 4.4 k/uL (3.8-10.6)
[2019-04-29 13:27] LABS: INR 1.2 (<1.2); Prothrombin Time 11.9 sec (9.0-12.0)
[2019-04-29 15:00] LABS: Large Platelets Present
[2019-04-29 18:42] LABS: Albumin 4.7 g/dL (3.80-4.90); Albumin/Globulin Ratio 1.68 (1.60-3.17); Anion Gap 4.7 mmol/L (4.00-12.00); BUN/Creat Ratio 18.75 Ratio (12.00-20.00); Carbon Dioxide 28.3 mmol/L (21.6-31.8); Globulin 2.8 g/dL (1.6-3.3); Non-African American GFR(CKD) 107.9 (60.0-200.0); Potassium 4.9 mmol/L (3.5-5.5); Total Bilirubin 0.7 mg/dL (0.2-1.2); Total Protein 7.5 g/dL (6.2-8.2)
[2019-04-29 18:45] LABS: Alpha Fetoprotein, Tumor Mkr 6.9 ng/mL (0.0-7.9)
== END | disposition home or self-care (01) ==
LOC: LABWHC1 11:50
PROVIDERS: ATTEND Internal Medicine Gastroenterology
DX: B18.2 Chronic viral hepatitis C (principal)
CPT/HCPCS: 36415; 80053; 82105; 85025; 85610; 87522

== ENCOUNTER → 2021-07-03 | Outpatient (CLI) | payer MEDICARE, OTHER ==
[2021-07-04 01:30] LABS: African American GFR (CKD) 117.5 (60.0-200.0); Albumin 4.7 g/dL (3.8-4.9); Albumin/Globulin Ratio 1.52 (1.60-3.17); Anion Gap 11.2 mmol/L (10.00-18.00); Blood Urea Nitrogen 11.7 mg/dL (9.0-27.0); Calcium 9.4 mg/dL (8.7-10.3); Carbon Dioxide 22.8 mmol/L (20.0-27.5); Globulin 3.1 g/dL (1.6-3.3); Non-African American GFR(CKD) 101.4 (60.0-200.0); Potassium 4.1 mmol/L (3.5-5.5); Total Bilirubin 0.4 mg/dL (0.30-1.20); Total Protein 7.8 g/dL (6.2-8.2)
[2021-07-04 01:59] LABS: Basophils # (A) 0.02 X 10*3/uL (0.00-0.10); Basophils % (A) 0.3 %; Eosinophils # (A) 0.12 X 10*3/uL (0.04-0.35); Eosinophils % (A) 2.1 %; HCT 43.8 % (39.6-50.0); HGB 14.8 g/dL (13.0-17.0); Immature Grans, Automated 0.3 %; Lymphocytes # (A) 0.77 X 10*3/uL (0.90-5.00); Lymphocytes % (A) 13.2 %; MCH 31.6 pg (27.0-32.0); MCHC 33.8 g/dL (32.0-37.0); MCV 93.6 fL (80.0-97.0); Mean Platelet Volume 13.1 fL (9.5-12.2); Monocytes # (A) 0.46 X 10*3/uL (0.20-1.00); Monocytes % (A) 7.9 %; NRBC Per 100 WBC 0 /100 WBCS (0.0-0.0); Neutrophils # (A) 4.44 X 10*3/uL (1.80-7.70); Neutrophils % (A) 76.2 %; Platelet Count 87 X 10*3/uL (140-440); RBC 4.68 X 10*6/uL (4.40-5.60); RDW 13.4 % (11.5-14.5); WBC 5.83 X 10*3/uL (4.50-10.00)
== END | disposition home or self-care (01) ==
LOC: LABWHC1 16:27
PROVIDERS: ATTEND Internal Medicine Gastroenterology
DX: K70.30 Alcoholic cirrhosis of liver without ascites (principal)
CPT/HCPCS: 36415; 80053; 82105; 82140; 85025

== ENCOUNTER → 2022-02-05 | Outpatient (CLI) | payer MEDICARE, OTHER ==
[2022-02-05 14:37] LABS: African American GFR (CKD) 115.1 (60.0-200.0); Albumin 4.4 g/dL (3.8-4.9); Albumin/Globulin Ratio 1.66 (1.60-3.17); BUN/Creat Ratio 13.63 Ratio (12.00-20.00); Blood Urea Nitrogen 12.4 mg/dL (9.0-27.0); Calcium 9.5 mg/dL (8.7-10.3); Carbon Dioxide 28.2 mmol/L (20.0-27.5); Globulin 2.7 g/dL (1.6-3.3); Non-African American GFR(CKD) 99.3 (60.0-200.0); Potassium 4.8 mmol/L (3.5-5.5); Total Bilirubin 0.5 mg/dL (0.30-1.20); Total Protein 7.1 g/dL (6.2-8.2)
[2022-02-05 15:56] LABS: Basophils # (A) 0.02 X 10*3/uL (0.00-0.10); Basophils % (A) 0.5 %; Eosinophils # (A) 0.19 X 10*3/uL (0.04-0.35); Eosinophils % (A) 4.8 %; HCT 41.1 % (39.6-50.0); HGB 13.7 g/dL (13.0-17.0); Immature Grans, Automated 0.3 %; Lymphocytes # (A) 0.64 X 10*3/uL (0.90-5.00); Lymphocytes % (A) 16.2 %; MCH 30.9 pg (27.0-32.0); MCHC 33.3 g/dL (32.0-37.0); MCV 92.6 fL (80.0-97.0); Mean Platelet Volume 11.8 fL (9.5-12.2); Monocytes # (A) 0.41 X 10*3/uL (0.20-1.00); Monocytes % (A) 10.4 %; NRBC Per 100 WBC 0 /100 WBCS (0.0-0.0); Neutrophils # (A) 2.68 X 10*3/uL (1.80-7.70); Neutrophils % (A) 67.8 %; Platelet Count 89 X 10*3/uL (140-440); RBC 4.44 X 10*6/uL (4.40-5.60); RDW 13.5 % (11.5-14.5); WBC 3.95 X 10*3/uL (4.50-10.00)
== END | disposition home or self-care (01) ==
LOC: LABWHC1 08:46
PROVIDERS: ATTEND Internal Medicine Gastroenterology
DX: K70.30 Alcoholic cirrhosis of liver without ascites (principal)
CPT/HCPCS: 36415; 80053; 82105; 85025

== ENCOUNTER 2022-02-06 08:26 | Day surgery (SDC) | payer MEDICARE, OTHER ==
[2022-02-05 08:59] VITALS: BMI 24.3
[~2022-02-06 08:26] MED LIST: LACTATED RINGERS 1,000 ML IV SCH; LIDOCAINE 1% (10MG/ML) FOR IV START INTRADERMA PRN
[2022-02-06 09:00] VITALS: TEMP 97.8
[2022-02-06] MEDS ORDERED: PROPOFOL 10 MG/ML 20 ML VIAL IV ONE (10:02)
--- NOTE | 2022-02-06 10:11 | P.PCN ---
Date of Procedure: 02/06/22 Procedure(s) Performed: BRIEF HISTORY: Patient is a 46-year-old, pleasant, is scheduled for an upper endoscopy as a part of screening for esophageal varices. Patient was diagnosed with liver cirrhosis 5 years ago.. PROCEDURE PERFORMED: Esophagogastroduodenoscopy with biopsy. PREOPERATIVE DIAGNOSIS: History of liver cirrhosis/screening for esophageal varices. IV sedation per anesthesia. PROCEDURE: After informed consent was obtained, the patient was brought into the endoscopy unit. IV sedation was administered by Anesthesia under continuous monitoring. Initially the Olympus GIF-140 video endoscope was inserted into the mouth. Esophagus intubated without any difficulty. It was gradually advanced into the stomach and duodenum and carefully examined. The bulb and the second part of the duodenum appeared normal. The scope at this time was withdrawn to the stomach, adequately insufflated with air, and upon careful examination, mucosa of the antrum had erosive gastritis and a small sequential antral ulcer measuring 5 mm in size which was biopsied. Mucosa of the, body, cardia and the fundus appeared normal. The gastric varices seen. The scope was then withdrawn into the esophagus. The GE junction was located at 39 cm from the incisors. There were small distal esophageal varices identified. The rest of the esophagus appeared normal. There were no erosions or ulcerations seen and the patient tolerated the procedure well. IMPRESSION: 1. Small distal esophageal varices. 2. Antral gastritis and small superficial antral ulcers status post biopsy. RECOMMENDATIONS: The findings of this examination were discussed with the patient as well as his family. He will continue with current medications.Plan a repeat upper endoscopy every 2-3 years as a part of follow-up of esophageal varices..
[2022-02-06 10:18] VITALS: RESP 18
[2022-02-06 10:53] VITALS: BP 119/76; PULSE 66
== END 2022-02-06 10:45 | disposition home or self-care (01) ==
LOC: ORWHC2ENDO 08:26
PROVIDERS: ATTEND Internal Medicine Gastroenterology
DX: K29.50 Unspecified chronic gastritis without bleeding (principal); I85.00 Esophageal varices without bleeding; I10 Essential (primary) hypertension; F17.210 Nicotine dependence, cigarettes, uncomplicated; Z88.1 Allergy status to other antibiotic agents; Z88.5 Allergy status to narcotic agent; Z87.19 Personal history of other diseases of the digestive system
CPT/HCPCS: 88305; 88342; 43239; J2704

== ENCOUNTER → 2022-07-17 | Outpatient (CLI) | payer MEDICARE, OTHER ==
[2022-07-17 15:20] LABS: Basophils # (A) 0.02 X 10*3/uL (0.00-0.10); Basophils % (A) 0.5 %; Eosinophils # (A) 0.16 X 10*3/uL (0.04-0.35); HCT 42.6 % (39.6-50.0); HGB 14.1 g/dL (13.0-17.0); Immature Grans, Automated 0.5 %; Lymphocytes # (A) 0.62 X 10*3/uL (0.90-5.00); Lymphocytes % (A) 15.3 %; MCH 30.5 pg (27.0-32.0); MCHC 33.1 g/dL (32.0-37.0); Mean Platelet Volume 12.4 fL (9.5-12.2); Monocytes # (A) 0.39 X 10*3/uL (0.20-1.00); Monocytes % (A) 9.6 %; NRBC Per 100 WBC 0 /100 WBCS (0.0-0.0); Neutrophils # (A) 2.84 X 10*3/uL (1.80-7.70); Neutrophils % (A) 70.1 %; Platelet Count 94 X 10*3/uL (140-440); RBC 4.63 X 10*6/uL (4.40-5.60); RDW 13.8 % (11.5-14.5); WBC 4.05 X 10*3/uL (4.50-10.00)
[2022-07-17 16:01] LABS: African American GFR (CKD) 121.3 (60.0-200.0); Albumin 4.5 g/dL (3.8-4.9); Albumin/Globulin Ratio 1.71 (1.60-3.17); Anion Gap 9.7 mmol/L (10.00-18.00); BUN/Creat Ratio 22.86 Ratio (12.00-20.00); Blood Urea Nitrogen 18.7 mg/dL (9.0-27.0); Calcium 9.5 mg/dL (8.7-10.3); Globulin 2.6 g/dL (1.6-3.3); Non-African American GFR(CKD) 104.7 (60.0-200.0); Potassium 4.5 mmol/L (3.5-5.5); Total Bilirubin 0.6 mg/dL (0.30-1.20); Total Protein 7.2 g/dL (6.2-8.2)
== END | disposition home or self-care (01) ==
LOC: LABWHC1 08:42
PROVIDERS: ATTEND Internal Medicine Gastroenterology
DX: K70.30 Alcoholic cirrhosis of liver without ascites (principal)
CPT/HCPCS: 36415; 80053; 82105; 85025

== ENCOUNTER → 2023-01-20 | Outpatient (CLI) | payer MEDICARE, OTHER ==
[2023-01-20 18:35] LABS: ALT 17 U/L (10-49); AST 20 U/L (14-35); Albumin 4.6 g/dL (3.8-4.9); Albumin/Globulin Ratio 1.59 Ratio (1.60-3.17); Alkaline Phosphatase 63 U/L (41-126); BUN/Creat Ratio 15.11 Ratio (12.00-20.00); Blood Urea Nitrogen 13.6 mg/dL (9.0-27.0); Calcium 9.7 mg/dL (8.7-10.3); Carbon Dioxide 25.3 mmol/L (21.6-31.8); Chloride 103 mmol/L (96-109); Globulin 2.9 g/dL (1.6-3.3); Glucose 104 mg/dL (70-110); Potassium 4.9 mmol/L (3.5-5.5); Sodium 140 mmol/L (135-145); Total Bilirubin 0.7 mg/dL (0.3-1.2); Total Protein 7.5 g/dL (6.2-8.2)
== END | disposition home or self-care (01) ==
LOC: LABWHC1 08:42
PROVIDERS: ATTEND Internal Medicine Gastroenterology
DX: K70.30 Alcoholic cirrhosis of liver without ascites (principal)
CPT/HCPCS: 36415; 80053

== ENCOUNTER → 2023-02-19 | Outpatient (CLI) | payer MEDICARE, OTHER ==
--- NOTE | 2023-02-19 09:34 | US ---
EXAMINATION TYPE: US liver DATE OF EXAM: 02/19/2023 COMPARISON: 07/15/22 CLINICAL INDICATION: Male, 47 years old with history of K70.30 ALCOHOLIC CIRRHOSIS OF LIVER; hx octavia lithiasis TECHNIQUE: Multiple sonographic images of the right upper quadrant are obtained. FINDINGS: EXAM MEASUREMENTS: Liver Length: 12.5 cm Gallbladder Wall: 0.20 cm CBD: Unable to delineate duct for measurement; somewhat seen at pancreas head Right Kidney: 10.6 x 5.4 x 5.5 cm SYSTEMS TEST ENGINEER NOTES: Pancreas: Tail obscured by overlying bowel gas Liver: Nodular contour with enlargement of caudate lobe suggestive of cirrhosis Gallbladder: Stones noted with shadowing Evidence for sonographic Thompson's sign: No CBD: Unable to delineate duct for measurement; somewhat seen at pancreas head Right Kidney: wnl IMPRESSION: 1. Appearance of the liver can be compatible with cirrhosis. 2. Cholelithiasis
== END | disposition home or self-care (01) ==
LOC: RADUSWWP 08:43
PROVIDERS: ATTEND Internal Medicine Gastroenterology
DX: K70.30 Alcoholic cirrhosis of liver without ascites (principal); K80.20 Calculus of gallbladder without cholecystitis without obstruction
CPT/HCPCS: 76705

== ENCOUNTER → 2023-06-17 | Outpatient (CLI) | payer MEDICARE, OTHER ==
--- NOTE | 2023-06-17 19:05 | US ---
EXAMINATION TYPE: US liver DATE OF EXAM: 06/17/2023 COMPARISON: 02/19/2023. CLINICAL INDICATION: Male, 47 years old with history of K70.30 ALCOHOLIC CIRRHOSIS O; cirrhosis TECHNIQUE: Multiple sonographic images of the right upper quadrant are obtained. FINDINGS: EXAM MEASUREMENTS: Liver Length: 12.8 cm Gallbladder Wall: .3 cm CBD: .4 cm Right Kidney: 11.4 x 4.7 x 5.7 cm ELECTROPHONIC ENGINEER NOTES: Pancreas: Tail obscured by overlying bowel gas Liver: Lobulated contour without evidence for suspicious mass. No dilated ducts or cystic structures. Gallbladder: stones seen Evidence for sonographic Thompson's sign: no CBD: limited Right Kidney: No hydronephrosis or masses seen IMPRESSION: 1. No evidence for acute process. 2. Findings suggestive of hepatic cirrhosis with nodular contour to liver.
== END | disposition home or self-care (01) ==
LOC: RADUSWWP 08:37
PROVIDERS: ATTEND Internal Medicine Gastroenterology
DX: K70.30 Alcoholic cirrhosis of liver without ascites (principal)
CPT/HCPCS: 76705

== ENCOUNTER → 2023-07-16 | Outpatient (CLI) | payer MEDICARE, OTHER ==
[2023-07-16 15:23] LABS: ALT 18 U/L (10-49); AST 24 U/L (14-35); Albumin 4.6 g/dL (3.8-4.9); Alkaline Phosphatase 60 U/L (41-126); Blood Urea Nitrogen 14.4 mg/dL (9.0-27.0); Calcium 9.8 mg/dL (8.7-10.3); Carbon Dioxide 24.1 mmol/L (21.6-31.8); Chloride 104 mmol/L (96-109); Globulin 2.7 g/dL (1.6-3.3); Glucose 109 mg/dL (70-110); Potassium 4.8 mmol/L (3.5-5.5); Sodium 140 mmol/L (135-145); Total Bilirubin 0.8 mg/dL (0.3-1.2); Total Protein 7.3 g/dL (6.2-8.2)
[2023-07-16 16:43] LABS: Basophils # (A) 0.01 X 10*3/uL (0.00-0.10); Basophils % (A) 0.3 %; Eosinophils # (A) 0.14 X 10*3/uL (0.04-0.35); Eosinophils % (A) 4.1 %; HGB 14.5 g/dL (13.0-17.0); Lymphocytes # (A) 0.51 X 10*3/uL (0.90-5.00); Lymphocytes % (A) 14.8 %; MCH 31.5 pg (27.0-32.0); MCHC 33.7 g/dL (32.0-37.0); MCV 93.5 FL (80.0-97.0); Monocytes # (A) 0.43 X 10*3/uL (0.20-1.00); Monocytes % (A) 12.5 %; NRBC Per 100 WBC 0 X 10*3/uL (0.00-0.01); Neutrophils # (A) 2.35 X 10*3/uL (1.80-7.70); Platelet Count 86 X 10*3/uL (140-440); RDW 13.4 % (11.5-14.5); WBC 3.45 X 10*3/uL (4.50-10.00)
[2023-07-16 16:44] LABS: RBC Morphology Normal (Normal)
== END | disposition home or self-care (01) ==
LOC: LABWHC1 08:48
PROVIDERS: ATTEND Internal Medicine Gastroenterology
DX: K70.30 Alcoholic cirrhosis of liver without ascites (principal)
CPT/HCPCS: 36415; 80053; 82105; 85025

== ENCOUNTER → 2023-08-20 | Outpatient (CLI) | payer MEDICARE, OTHER | END | disposition home or self-care (01) | LOC: LABWHC1 08:50 | PROVIDERS: ATTEND Internal Medicine Gastroenterology | DX: R53.83 Other fatigue (principal) | CPT/HCPCS: 36415; 82140 ==

== ENCOUNTER 2024-04-02 08:07 | Observation (INO) | payer MEDICARE, OTHER ==
[2024-04-02] MEDS ORDERED: LORazepam 2 MG/ML INJ IV PRN ×3 (08:21)
--- NOTE | 2024-04-02 08:32 | ED ---
General Adult HPI - General Chief complaint: Alcohol Stated complaint: ETOH withdrawal Time Seen by Provider: 04/02/24 08:09 Source: patient Mode of arrival: ambulatory Limitations: no limitations - History of Present Illness Initial comments: Dictation was produced using [employer] dictation software. please excuse any grammatical, word or spelling errors. Chief Complaint: 48-year-old male with alcohol withdrawal History of Present Illness: Patient is 48-year-old male presents to the emergency department alcohol withdrawal symptoms. Patient states his symptoms have been ongoing for the last 12 hours. He has history of alcohol abuse however was sober for several months and decided over the last few months to start drinking heavily again. States that drinks 10 beers a day and has been doing this for the last several months. He states that now he wants to quit. Last had alcohol 8 PM last night. This morning he woke up with shakiness for th e hot flashes and feeling restless. He has history of severe withdrawal requiring hospital admission after having had withdrawal seizure. The ROS documented in this emergency department record has been reviewed and confirmed by me. Those systems with pertinent positive or negative responses have been documented in the HPI. All other systems are other negative and/or noncontributory. - Related Data Home Medications Medication Instructions Recorded Confirmed Multivit-Min/Folic/Vit K/Lycop 1 each PO DAILY 12/05/21 02/06/22 [Men's Multivitamin Tablet] Allergies Allergy/AdvReac Type Severity Reaction Status Date / Time erythromycin base Allergy Rash/Hives Verified 04/02/24 08:09 lorazepam [From Ativan] AdvReac coma Verified 04/02/24 08:09 Review of Systems ROS Statement: Those systems with pertinent positive or pertinent negative responses have been documented in the HPI. ROS Other: All systems not noted in ROS Statement are negative. Past Medical History Past Medical History: Hypertension Additional Past Medical History / Comment(s): hep c with treatment. esophageal varices. withdrawal seizures History of Any Multi-Drug Resistant Organisms: MRSA Date of last positivie culture/infection: 2011 MDRO Source:: LEG Past Surgical History: Orthopedic Surgery Additional Past Surgical History / Comment(s): lt knee SX Past Anesthesia/Blood Transfusion Reactions: No Reported Reaction Past Psychological History: No Psychological Hx Reported Smoking Status: Current every day smoker Past Alcohol Use History: Abuse, Daily, Heavy Past Drug Use History: None Reported - Past Family History Mother Family Medical History: No Reported History Father Family Medical History: No Reported History General Exam - General Exam Comments Initial Comments: PHYSICAL EXAM: General Impression: Alert and oriented x3, not in acute distress, slightly agitated HEENT: Normocephalic atraumatic, extra-ocular movements intact, pupils equal and reactive to light bilaterally, mucous membranes moist. Cardiovascular: Heart regular rate and rhythm Chest: Able to complete full sentences, no retractions, no tachypnea Abdomen: abdomen soft, non-tender, non-distended, no organomegaly Musculoskeletal: Pulses present and equal in all extremities, no peripheral edema Motor: no focal deficits noted Neurological: CN II-XII grossly intact, no focal motor or sensory deficits noted Skin: Intact with no visualized rashes Psych: Normal affect and mood Limitations: no limitations Course Vital Signs 04/02/24 04/02/24 04/02/24 08:09 08:30 09:42 Temperature 98.8 F Pulse Rate 111 H 105 H 82 Respiratory 20 16 16 Rate Blood Pressure 154/87 162/105 151/90 O2 Sat by Pulse 97 98 96 Oximetry EKG Findings - EKG Comments: EKG Findings:: My EKG interpretation: Ventricular rate 103, sinus tachycardia,. 140, QRS 91, QTc 4 7. No OK prolongation, no QTC prolongation, no ST or T-wave changes noted. Overall, this EKG is unremarkable Medical Decision Making - Medical Decision Making Was pt. sent in by a medical professional or institution (, PA, HOTEL RESERVATION AGENT, urgent care, hospital, or long term...) When possible be specific @ -No Did you speak to anyone other than the patient for history (EMS, parent, family, police, friend...)? What history was obtained from this source @ -No Did you review nursing and triage notes (agree or disagree)? Why? @ -I reviewed and agree with nursing and triage notes Were old charts reviewed (outside hosp., previous admission, EMS record, old EKG, old radiological studies, urgent care reports/EKG's, long term records)? Report findings @ -No old charts were reviewed Differential Diagnosis (chest pain, altered mental status, abdominal pain women, abdominal pain men, vaginal bleeding, musculoskeletal, weakness, fever, dyspnea, syncope, headache, dizziness, GI bleed, back pain, seizure, CVA, palpatations, mental health)? @ -Differential Weakness: Hypoglycemia, shock, sepsis, hyponatremia, anemia, infection, IL, ETOH, adverse medicine reaction, overdose, stroke, this is not meant to be an all-inclusive list. EKG interpreted by me (3pts min.). @ -See above X-rays interpreted by me (1pt min.). @ -None done CT interpreted by me (1pt min.). @ -None done U/S interpreted by me (1pt. min.). @ -None done What testing was considered but not performed or refused? (CT, X-rays, U/S, labs)? Why? @ -None What meds were considered but not given or refused? Why? @ -None Was smoking cessation discussed for >3mins.? @ -No Were there social determinants of health that impacted care today? How? (Homelessness, low income, unemployed, alcoholism, drug addiction, transportation, low edu. Level, literacy, decrease access to med. care, [facility], rehab)? @ -No Was there de-escalation of care discussed even if they declined (Discuss DNR or withdrawal of care, Hospice)? DNR status @ -No What co-morbidities impacted this encounter? (DM, HTN, Smoking, COPD, CAD, Cancer, CVA, ARF, Chemo, Hep., AIDS, mental health diagnosis, sleep apnea, morbid obesity)? @ -Alcohol dependence Was patient admitted / discharged? Hospital course, mention meds given and route, prescriptions, significant lab abnormalities, going to OR and other pertinent info. @ -48-year-old male presents to the emergency department with beginning sympto ms of alcohol withdrawal. Patient has history of severe alcohol withdrawal symptoms. Vital signs stable. At this point CIWA score is low however last alcohol intake was 8 PM last night. Patient has high risk features including hospital admission for alcohol withdrawal in the past. Vital signs shows tachycardia. Laboratory evaluation within acceptable limits. Patient be admitted for medical monitoring and inpatient alcohol withdrawal treatment. Did you discuss the management of the patient with other professionals (professionals i.e. , PA, HOTEL RESERVATION AGENT, lab, RT, psych nurse, social media marketing analyst, glost placer, teacher, ground intelligence officer, insurance case manager)? Give summary @ -Case discussed with hospitalist for admission Was critical care preformed (if so, how long)? @ -No Undiagnosed new problem with uncertain prognosis? @ -No Drug Therapy requiring intensive monitoring for toxicity (Heparin, Nitro, Insulin, Cardizem)? @ -No Were any procedures done? @ -No Diagnosis/symptom? Acute, or Chronic, or Acute on Chronic? Uncomplicated (without systemic symptoms) or Complicated (systemic symptoms)? @ -EtOH withdrawal Side effects of treatment? @ -No Exacerbation, Progression, or Severe Exacerbation? @ -No Poses a threat to life or bodily function? How? (Chest pain, USA, IL, pneumonia, PE, COPD, DKA, ARF, appy, cholecystitis, CVA, Diverticulitis, Homicidal, Suicidal, threat to staff... and all critical care pts) @ -yes - Lab Data Result diagrams: 04/02/24 08:36 04/02/24 08:36 Lab Results 04/02/24 04/02/24 04/02/24 Range/Units 08:36 08:36 08:36 WBC 3.9 (3.8-10.6) k/uL RBC 4.76 (4.30-5.90) m/uL Hgb 15.1 (13.0-17.5) gm/dL Hct 45.2 (39.0-53.0) % MCV 95.0 (80.0-100.0) fL MCH 31.8 (25.0-35.0) pg MCHC 33.5 (31.0-37.0) g/dL RDW 12.7 (11.5-15.5) % Plt Count 92 L (150-450) k/uL MPV 9.3 Neutrophils % 79 % Lymphocytes % 8 % Monocytes % 8 % Eosinophils % 4 % Basophils % 0 % Neutrophils # 3.1 (1.3-7.7) k/uL Lymphocytes # 0.3 L (1.0-4.8) k/uL Monocytes # 0.3 (0-1.0) k/uL Eosinophils # 0.1 (0-0.7) k/uL Basophils # 0.0 (0-0.2) k/uL Manual Slide Review Performed Sodium 139 (137-145) mmol/L Potassium 3.9 (3.5-5.1) mmol/L Chloride 103 (98-107) mmol/L Carbon Dioxide 20 L (22-30) mmol/L Anion Gap 16 mmol/L BUN 9 (9-20) mg/dL Creatinine 0.62 L (0.66-1.25) mg/dL Est GFR (CKD-EPI)AfAm >90 (>60 ml/min/1.73 sqM) Est GFR (CKD-EPI)NonAf >90 (>60 ml/min/1.73 sqM) Glucose 130 H (74-99) mg/dL Plasma Lactic Acid Dario 1.2 (0.7-2.0) mmol/L Calcium 9.2 (8.4-10.2) mg/dL Magnesium 2.0 (1.6-2.3) mg/dL Total Bilirubin 1.6 H (0.2-1.3) mg/dL AST 70 H (17-59) U/L ALT 56 H (4-49) U/L Alkaline Phosphatase 83 (38-126) U/L Total Protein 8.3 H (6.3-8.2) g/dL Albumin 4.8 (3.5-5.0) g/dL Serum Alcohol <10 mg/dL Disposition Clinical Impression: Alcohol withdrawal syndrome Disposition: ADMITTED IP TO THIS HOSP Condition: Fair Referrals: [facility] [NON-STAFF] - 1-2 days [facility] [NON-STAFF] - As Soon As Possible Forms: AA Meetings [address] - [facility], AA Meetings [facility], Outpatient Counseling, In Substance Abuse Facilities, Area PCPs Decision Time: 09:47
[2024-04-02] MEDS: SODIUM CHLORIDE 0.9% 1,000 ML IV STA (08:51)
[2024-04-02 08:54] LABS: Basophils % (A) 0 %; Eosinophils # (A) 0.1 k/uL (0-0.7); Eosinophils % (A) 4 %; HCT 45.2 % (39.0-53.0); HGB 15.1 gm/dL (13.0-17.5); Lymphocytes # (A) 0.3 k/uL (1.0-4.8); Lymphocytes % (A) 8 %; MCH 31.8 pg (25.0-35.0); MCHC 33.5 g/dL (31.0-37.0); Mean Platelet Volume 9.3; Monocytes # (A) 0.3 k/uL (0-1.0); Monocytes % (A) 8 %; Neutrophils # (A) 3.1 k/uL (1.3-7.7); Neutrophils % (A) 79 %; RBC 4.76 m/uL (4.30-5.90); RDW 12.7 % (11.5-15.5); WBC 3.9 k/uL (3.8-10.6)
[2024-04-02 09:11] LABS: ALT 56 U/L (4-49); AST 70 U/L (17-59); African American GFR (CKD) >90 (>60 ml/min/1.73 sqM); Albumin 4.8 g/dL (3.5-5.0); Alcohol <10 mg/dL; Alkaline Phosphatase 83 U/L (38-126); Anion Gap 16 mmol/L; Blood Urea Nitrogen 9 mg/dL (9-20); Calcium 9.2 mg/dL (8.4-10.2); Carbon Dioxide 20 mmol/L (22-30); Chloride 103 mmol/L (98-107); Glucose 130 mg/dL (74-99); Non-African American GFR(CKD) >90 (>60 ml/min/1.73 sqM); Potassium 3.9 mmol/L (3.5-5.1); Sodium 139 mmol/L (137-145); Total Bilirubin 1.6 mg/dL (0.2-1.3); Total Protein 8.3 g/dL (6.3-8.2)
[2024-04-02 09:43] LABS: Platelet Count 92 k/uL (150-450)
[2024-04-02] MEDS ORDERED: NALOXONE 0.4 MG/ML 1 ML VIAL IV PRN (09:45)
[2024-04-02] MEDS: SODIUM CHLORIDE 0.9% 1,000 ML IV SCH (09:55)
[2024-04-02] MEDS ORDERED: LORazepam 0.5 MG TAB PO PRN (10:53)
[2024-04-02] MEDS ORDERED: LORazepam 1 MG TAB PO PRN (10:53)
[2024-04-02] MEDS: MULTIVITAMINS, THERA 1 EACH TAB PO SCH (11:18)
[2024-04-02] MEDS: PANTOPRAZOLE 40 MG TABLET PO SCH (11:18)
[2024-04-02] MEDS: FOLIC ACID 1 MG TAB PO SCH (11:18)
[2024-04-02] MEDS: THIAMINE 100 MG/ML 2 ML VIAL IM STA (11:18)
[2024-04-02] MEDS: NICOTINE 14MG/24HR PATCH TRANSDERM SCH (11:24)
[2024-04-02 12:10] LABS: Amphetamine Screen,Urine Not Detected (NotDetected); Barbiturate Screen,Urine Not Detected (NotDetected); Benzodiazepines Screen,Urine Not Detected (NotDetected); Cocaine Screen,Urine Not Detected (NotDetected); Methadone Screen, Urine Not Detected (NotDetected); Opiate Screen,Urine Not Detected (NotDetected); Oxycodone Screen, Urine Not Detected (NotDetected); Phencyclidine Screen,Urine Not Detected (NotDetected); Tricyclic Antidepressant,Urine Not Detected (NotDetected); Urn Cannabinoid Scrn Not Detected (NotDetected)
--- NOTE | 2024-04-02 12:26 | P.HPIM ---
History of Present Illness H&P Date: 04/02/24 History of Presenting Illness: Patient is a 48-year-old male with a past medical history of alcoholic liver cirrhosis with esophageal varices, hepatitis C status post treatment, nicotine dependence, and daily alcohol abuse with history of previous withdrawal seizures and reported ICU admission in 2011 secondary to complications of his alcohol withdrawal,. He presented to the emergency department with a chief complaint of alcohol withdraw. Patient reports longstanding history of alcoholism and reports had extended period of sobriety but fell back off the [facility] 3 months ago and started drinking heavily again. Patient reports drinking 10-12 beers daily with last alcoholic beverage being around 8:30 PM last night. Patient reports awakening this morning feeling extreme nausea and tremors and stated he began to become diaphoretic with hot flashes feeling very anxious so he came to the emergency department as he was concerned he may end up with another withdrawal seizure. Patient denies having any headache, lightheadedness, dizziness, changes in vision or hearing, visual or auditory hallucinations, chest pain, palpitations, shortness of breath, cough or congestion, hemoptysis, episodes of vomiting, or experiencing any numbness/tingling/weakness in his extremities. Upon arrival to our facility, patient underwent evaluation in the emergency department. Vital signs upon arrival show blood pressure 154/87, heart rate 111, respiratory rate 20, temp 98.8 F, and SpO2 of 97% on room air. Labs completed and reviewed. CBC showing thrombocytopenia with platelet count of 92. BMP showing hypocarbia with metabolic acidosis with chloride of 103, bicarb of 20, and elevated anion gap of 16. Blood glucose was 130. Lactic acid was 1.2. Magnesium 2.0. Liver profile showing hyperbilirubinemia with total bili of 1.6 and elevated transaminitis wi th AST of 70 and ALT of 56. Serum alcohol was less than 10. Urine drug screen negative. Patient admitted under our services for medical assisted detox at this time. Review of systems: Pertinent positives and negatives as discussed in HPI, a complete review of systems was performed and all other systems are negative. Physical exam: Vital signs reviewed and stable. General: Nontoxic, no distress and appears stated age. Derm: Skin warm and dry, normal coloration for ethnicity. Head: Atraumatic, normocephalic and symmetric. Eyes: EOM's intact, no lid lag, and anicteric sclera Mouth: no lip lesions, mucus membranes moist Cardiovascular: regular rate and rhythm with normal S1S2, no murmur, positive posterior tibial pulses bilaterally, and cap refill < 2 seconds. Lungs: Respirations even, regular, and unlabored on room air. Lungs CTA bilaterally, no rhonchi, no rales, no wheezing, and no accessory muscle usage. Abdominal: soft, nontender to palpation, no guarding, no appreciable organomegaly Ext: ROM intact. No gross muscle atrophy, no edema, no contractures Neuro: Speech clear, face symmetrical and CN II-XII grossly intact with no noted focal neuro deficits Psych: Alert and oriented to person, place, time, and situation. Appropriate and pleasant affect. Assessment and Plan of Care: Alcohol withdraw in active alcoholic Alcoholic liver cirrhosis History of esophageal varices History of hepatitis C status posttreatment Transaminitis with hyperbilirubinemia, secondary to alcoholic liver cirrhosis and daily alcohol abuse Metabolic acidosis, secondary to alcoholic liver cirrhosis and daily alcohol abuse Thrombocytopenia, likely secondary to alcoholic cirrhosis and daily alcohol abuse -Order placed for monitoring of CIWA scores and patient to be medicated with Ativan 0.5 mg every 4 hours as needed for CIWA score of 4-5, Ativan 1 mg every 4 hours for CIWA score of 6-7, Ativan 2 mg every 3 hours CIWA score of 8-9, and Ativan 2 mg every 2 hours forr CIWA score of 10 or greater. -Continuous IV hydration with 0.9% normal saline at 125 cc/h. -Thiamine 100 mg daily, and Multivitamin daily, and Folate 1 mg daily -Seizure, fall, aspiration, and elopement precautions in place. -Urine drug screen negative. -Continued close monitoring of electrolytes and replace as needed. -Telemetry monitoring. CODE STATUS: Full code DVT prophylaxis: Lovenox Anticipated discharge date: Pending clinical course Anticipated discharge place: Home Patient was seen independently by Nurse Practitioner. This document was prepared using [employer] dictation software. Please allow for errors in court liaison while rare they do occur. David Cobb NP rendered care for this patient independently, reviewed the findings and plan as documented in the note above and agree with plan. I did not physically speak with or examine the patient on this date. Past Medical History Past Medical History: Hypertension Additional Past Medical History / Comment(s): hep c with treatment. esophageal varices. withdrawal seizures History of Any Multi-Drug Resistant Organisms: MRSA Date of last positivie culture/infection: 2011 MDRO Source:: LEG Past Surgical History: Orthopedic Surgery Additional Past Surgical History / Comment(s): lt knee SX Past Anesthesia/Blood Transfusion Reactions: No Reported Reaction Past Psychological History: No Psychological Hx Reported Smoking Status: Current every day smoker Past Alcohol Use History: Abuse, Daily, Heavy Past Drug Use History: None Reported - Past Family History Mother Family Medical History: No Reported History Father Family Medical History: No Reported History Medications and Allergies Home Medications Medication Instructions Recorded Confirmed Type Omeprazole 20 mg PO DAILY 04/02/24 04/02/24 History Allergies Allergy/AdvReac Type Severity Reaction Status Date / Time erythromycin base Allergy Rash/Hives Verified 04/02/24 09:55 lorazepam [From Ativan] Allergy Rash/Hives Verified 04/02/24 09:55 Physical Exam Vitals: Vital Signs Temp Pulse Resp BP Pulse Ox 04/02/24 09:42 82 16 151/90 96 04/02/24 08:30 105 H 16 162/105 98 04/02/24 08:09 98.8 F 111 H 20 154/87 97 Intake and Output 04/01/24 04/02/24 04/02/24 22:59 06:59 14:59 Other: Weight 79.379 kg Results CBC & Chem 7: 04/02/24 08:36 04/02/24 08:36 Labs: Abnormal Lab Results - Last 24 Hours (Table) 04/02/24 04/02/24 Range/Units 08:36 08:36 Plt Count 92 L (150-450) k/uL Lymphocytes # 0.3 L (1.0-4.8) k/uL Carbon Dioxide 20 L (22-30) mmol/L Creatinine 0.62 L (0.66-1.25) mg/dL Glucose 130 H (74-99) mg/dL Total Bilirubin 1.6 H (0.2-1.3) mg/dL AST 70 H (17-59) U/L ALT 56 H (4-49) U/L Total Protein 8.3 H (6.3-8.2) g/dL
[2024-04-03 02:11] VITALS: RESP 17
[2024-04-03] MEDS: THIAMINE 100 MG TAB PO SCH (08:46)
[2024-04-03] MEDS: ENOXAPARIN 40 MG/0.4 ML SYRINGE SQ SCH (08:46)
[2024-04-03 10:04] VITALS: BP 151/89; PULSE 80; TEMP 98.6
[2024-04-03 10:25] LABS: ALT 44 U/L (10-49); AST 51 U/L (14-35); Albumin 3.9 g/dL (3.8-4.9); Alkaline Phosphatase 58 U/L (41-126); BUN/Creat Ratio 15.57 Ratio (12.00-20.00); Blood Urea Nitrogen 10.9 mg/dL (9.0-27.0); Calcium 8.5 mg/dL (8.7-10.3); Carbon Dioxide 24.3 mmol/L (21.6-31.8); Chloride 106 mmol/L (96-109); Globulin 2.6 g/dL (1.6-3.3); Glucose 122 mg/dL (70-110); Magnesium 2.1 mg/dL (1.5-2.4); Sodium 140 mmol/L (135-145); Total Bilirubin 1.1 mg/dL (0.3-1.2); Total Protein 6.5 g/dL (6.2-8.2)
[2024-04-03 11:20] LABS: HCT 40.7 % (39.6-50.0); HGB 13.6 g/dL (13.0-17.0); Immature Platelet Fraction 10.8 % (1.1-6.1); MCH 31.5 pg (27.0-32.0); MCHC 33.4 g/dL (32.0-37.0); MCV 94.2 FL (80.0-97.0); Mean Platelet Volume 12.8 FL (9.5-12.2); NRBC Per 100 WBC 0 X 10*3/uL (0.00-0.01); Platelet Count 72 X 10*3/uL (140-440); RBC 4.32 X 10*6/uL (4.40-5.60); RDW 12.8 % (11.5-14.5)
--- NOTE | 2024-04-03 13:02 | P.DS ---
Providers Date of admission: 04/02/24 09:46 Expected date of discharge: 04/03/24 Attending physician: Javon Mohan Primary care physician: Stated None Hospital Course: Discharge Diagnosis: Alcohol withdraw in active alcoholic Alcoholic liver cirrhosis History of esophageal varices History of hepatitis C status posttreatment Transaminitis with hyperbilirubinemia, secondary to alcoholic liver cirrhosis and daily alcohol abuse Metabolic acidosis, secondary to alcoholic liver cirrhosis and daily alcohol abuse Thrombocytopenia, likely secondary to alcoholic cirrhosis and daily alcohol abuse. Hospital Course: Patient is a 48-year-old male with a past medical history of alcoholic liver cirrhosis with esophageal varices, hepatitis C status post treatment, nicotine dependence, and daily alcohol abuse with history of previous withdrawal seizures and reported ICU admission in 2011 secondary to complications of his alcohol withdrawal,. He presented to the emergency department with a chief complaint of alcohol withdraw. Patient reports longstanding history of alcoholism and reports had extended period of sobriety but fell back off the wan approximately 3 months ago and started drinking heavily again. Patient reports drinking 10-12 beers daily with last alcoholic beverage being around 8:30 PM last night. Patient reports awakening this morning feeling extreme nausea and tremors and stated he began to become diaphoretic with hot flashes feeling very anxious so he came to the emergency department as he was concerned he may end up with another withdrawal seizure. Patient denies having any headache, lightheadedness, dizziness, changes in vision or hearing, visual or auditory hallucinations, chest pain, palpitations, shortness of breath, cough or congestion, hemoptysis, episodes of vomiting, or experiencing any numbness/tingling/weakness in his extremities. Upon arrival to our facility, patient underwent evaluation in the emergency department. Vital signs upon arrival show blood pressure 154/87, heart rate 111, respiratory rate 20, temp 98.8 F, and SpO2 of 97% on room air. Labs completed and reviewed. CBC showing thrombocytopenia with platelet count of 92. BMP showing hypocarbia with metabolic acidosis with chloride of 103, bicarb of 20, and elevated anion gap of 16. Blood glucose was 130. Lactic acid was 1.2. Magnesium 2.0. Liver profile showing hyperbilirubinemia with total bili of 1.6 and elevated transaminitis with AST of 70 and ALT of 56. Serum alcohol was less than 10. Urine drug screen negative. Patient admitted under our services for medical assisted detox at this time. Patient hospitalized and monitored overnight. He was placed on CIWA protocol with symptom triggered medication management with benzodiazepines. Patient required no Ativan throughout the night. Currently CIWA score 0. Patient reports feeling well and ready for discharge. Patient strongly encouraged to avoid any and all alcohol use. Patient to follow-up outpatient with [facility] for drug and alcohol rehabilitation and residency clinic for establishment of care and follow-up with PCP. Physical exam: Vital signs reviewed and stable. General: Nontoxic, no distress and appears stated age. Derm: Skin warm and dry, normal coloration for ethnicity. Head: Atraumatic, normocephalic and symmetric. Eyes: EOM's intact, no lid lag, and anicteric sclera Mouth: no lip lesions, mucus membranes moist Cardiovascular: regular rate and rhythm with normal S1S2, no murmur, positive posterior tibial pulses bilaterally, and cap refill < 2 seconds. Lungs: Respirations even, regular, and unlabored on room air. Lungs CTA bilaterally, no rhonchi, no rales, no wheezing, and no accessory muscle usage. Abdominal: soft, nontender to palpation, no guarding, no appreciable organomegaly Ext: ROM intact. No gross muscle atrophy, no edema, no contractures Neuro: Speech clear, face symmetrical and CN II-XII grossly intact with no noted focal neuro deficits Psych: Alert and oriented to person, place, time, and situation. Appropriate and pleasant affect. A total of 31 minutes of time were spent preparing this complex discharge summary. Pt was discharged on 04/03/2024 at 1 PM. Patient was seen independently by Nurse Practitioner. This document was prepared using Gobbler dictation software. Please allow for errors in rehab office coordinator while rare they do occur. David Cobb NP rendered care for this patient independently, reviewed the findings and plan as documented in the note above. I did not physically speak with or examine the patient on this date. Patient Condition at Discharge: Stable Plan - Discharge Summary New Discharge Prescriptions: Continue Omeprazole 20 mg PO DAILY Discharge Medication List Omeprazole 20 mg PO DAILY 04/02/24 [History] Follow up Appointment(s)/Referral(s): [facility] [NON-STAFF] - 1-2 days (Contact office to become established with a primary care provider. ) [facility] [NON-STAFF] - As Soon As Possible Patient Instructions/Handouts: Abuse of Alcohol (DC), Alcohol Withdrawal (DC) Discharge/Stand Alone Forms: AA Meetings [facility] [address] [facility] - [facility], AA Meetings [facility], Outpatient Counseling, In Substance Abuse Facilities, Area PCPs Discharge Disposition: HOME SELF-CARE
== END 2024-04-03 14:10 | disposition home or self-care (01) ==
LOC: EC 08:07 → 5NMEDONC 09:46 → 6NMEDSUR 17:20
PROVIDERS: ADMIT Student in an Organized Health Care Education/Training Program; ATTEND Student in an Organized Health Care Education/Training Program
DX: F10.239 Alcohol dependence with withdrawal, unspecified (principal); K70.30 Alcoholic cirrhosis of liver without ascites; I85.10 Secondary esophageal varices without bleeding; E87.20 Acidosis, unspecified; D69.6 Thrombocytopenia, unspecified; F17.200 Nicotine dependence, unspecified, uncomplicated; Z79.899 Other long term (current) drug therapy; Z88.1 Allergy status to other antibiotic agents; Z88.8 Allergy status to other drugs, medicaments and biological substances; Z86.19 Personal history of other infectious and parasitic diseases
CPT/HCPCS: 96361; 96360; 96372; 99285; 36415; 93005; 80053 ×2; 83605; 83735 ×2; 85025; 85027; 80306; G0378 ×3; G0480; J3411; 80320

== ENCOUNTER 2024-09-21 17:41 | Observation (INO) | payer MEDICARE, OTHER ==
[2024-09-21] MEDS ORDERED: LORazepam 1 MG/0.5 ML VIAL IV PRN ×3 (18:39)
[2024-09-21] MEDS: SODIUM CHLORIDE 0.9% 1,000 ML IV ONE (18:59)
[2024-09-21] MEDS: ONDANSETRON 4 MG/2 ML VIAL IVP STA (19:00)
[2024-09-21] MEDS: PANTOPRAZOLE 40 MG/10 ML VIAL IVP STA (19:01)
[2024-09-21] MEDS: LORazepam 1 MG/0.5 ML VIAL IV STA (19:02)
[2024-09-21 19:24] LABS: Basophils # (A) 0.02 10*3/uL (0.00-0.10); Basophils % (A) 0.7 %; Eosinophils # (A) 0.09 10*3/uL (0.04-0.35); Eosinophils % (A) 2.9 %; HCT 43.0 % (39.6-50.0); HGB 14.8 g/dL (13.0-17.0); Lymphocytes # (A) 0.24 10*3/uL (0.90-5.00); Lymphocytes % (A) 7.8 %; MCH 32.3 pg (27.0-32.0); MCHC 34.4 g/dL (32.0-37.0); MCV 93.9 fL (80.0-97.0); Monocytes # (A) 0.38 10*3/uL (0.20-1.00); Monocytes % (A) 12.4 %; Neutrophils # (A) 2.33 10*3/uL (1.80-7.70); Neutrophils % (A) 75.9 %; RBC 4.58 10*6/uL (4.40-5.60); RDW 13.2 % (11.5-14.5); WBC 3.07 10*3/uL (4.50-10.00)
--- NOTE | 2024-09-21 19:27 | XR ---
EXAMINATION TYPE: XR chest 2V DATE OF EXAM: 09/21/2024 7:19 PM COMPARISON: None TECHNIQUE: XR chest 2V Frontal and lateral views of the chest. CLINICAL INDICATION:Male, 48 years old with history of abdominal pain; FINDINGS: Lungs/Pleura: There is no evidence of pleural effusion, focal consolidation, or pneumothorax. Pulmonary vascularity: Unremarkable. Heart/mediastinum: Cardiomediastinal silhouette is unremarkable. Musculoskeletal: No acute osseous pathology. IMPRESSION: No acute cardiopulmonary disease/process. [facility], , 09/21/2024 7:25 PM
[2024-09-21 19:42] LABS: INR 1.1 (<1.2); Partial Thromboplastin Time 25.2 sec (22.0-30.0); Prothrombin Time 11.9 sec (10.0-12.5)
[2024-09-21 19:44] LABS: ALT 77 U/L (4-49); AST 105 U/L (17-59); African American GFR (CKD) >90 (>60 ml/min/1.73 sqM); Albumin 4.8 g/dL (3.5-5.0); Alkaline Phosphatase 68 U/L (38-126); Amylase 51 U/L (30-110); Anion Gap 13 mmol/L; Blood Urea Nitrogen 6 mg/dL (9-20); Calcium 9.1 mg/dL (8.4-10.2); Carbon Dioxide 24 mmol/L (22-30); Chloride 103 mmol/L (98-107); Glucose 111 mg/dL (74-99); Lipase 94 U/L (23-300); Non-African American GFR(CKD) >90 (>60 ml/min/1.73 sqM); Potassium 3.8 mmol/L (3.5-5.1); Sodium 140 mmol/L (137-145); Total Protein 8.2 g/dL (6.3-8.2)
[2024-09-21] MEDS: SODIUM CHLORIDE 0.9% 1,000 ML IV SCH (19:55)
[2024-09-21 20:01] LABS: RSV Not Detected (Not Detectd)
[2024-09-21 20:09] LABS: Bilirubin,Urine Negative (Negative); Blood,Urine Negative (Negative); Color,Urine Colorless; Glucose,Urine (UA) Negative (Negative); Ketones,Urine Negative (Negative); Leukocyte Esterase,Urine Negative (Negative); Nitrite,Urine Negative (Negative); PH, Urine 8.0 (5.0-8.0); Protein,Urine Negative (Negative); Specific Gravity,Urine 1.009 (1.001-1.035); Urobilinogen,Urine <2.0 mg/dL (<2.0)
[2024-09-21 20:14] LABS: Platelet Count 72 10*3/uL (140-440)
[2024-09-21] MEDS ORDERED: NALOXONE 0.4 MG/ML 1 ML VIAL IV PRN (20:52)
--- NOTE | 2024-09-21 20:56 | ED ---
General Adult HPI - General Chief complaint: Alcohol Stated complaint: alcohol withdrawl Time Seen by Provider: 09/21/24 18:20 Source: patient, RN notes reviewed, old records reviewed Mode of arrival: ambulatory Limitations: no limitations - History of Present Illness Initial comments: 48-year-old male who presents emergency department for alcohol withdrawals. Patient does have a history of alcohol withdrawals, liver cirrhosis, esophageal varices that required repair. States he had been sober for 5 years but 2 or 3 months ago began drinking again. Does drink heavily daily, approximately fifteen +12 ounce beers per day. Last drink was at 2330 last night. Endorses some mild epigastric discomfort with 1 episode of nonbilious nonbloody emesis. States he feels somewhat weak and jittery. Thinks he may be an early alcohol withdrawals. Denies headache or agitation. Denies significant anxiety. Presents for further evaluation at this time. Has followed with Dr. Hendricks in the past. - Related Data Home Medications Medication Instructions Recorded Confirmed Omeprazole 20 mg PO DAILY 04/02/24 09/21/24 Allergies Allergy/AdvReac Type Severity Reaction Status Date / Time erythromycin base Allergy Rash/Hives Verified 09/21/24 20:16 lorazepam [From Ativan] Allergy Rash/Hives Verified 09/21/24 20:16 Review of Systems ROS Statement: Those systems with pertinent positive or pertinent negative responses have been documented in the HPI. Review of Systems: CONST: Denies fever EYES: Denies blurry vision ENT: Denies nasal congestion C/V: Denies Chest pain RESP: Denies shortness of breath GI: Endorses mild epigastric discomfort. : Denies dysuria SKIN: Denies rash. MSK: Denies joint pain. NEURO: Denies headache ROS Other: All systems not noted in ROS Statement are negative. Past Medical History Past Medical History: Hypertension Additional Past Medical History / Comment(s): hep c with treatment. esophageal varices. withdrawal seizures History of Any Multi-Drug Resistant Organisms: MRSA Date of last positivie culture/infection: 2011 MDRO Source:: LEG Past Surgical History: Orthopedic Surgery Additional Past Surgical History / Comment(s): lt knee SX Past Anesthesia/Blood Transfusion Reactions: No Reported Reaction Past Psychological History: No Psychological Hx Reported Smoking Status: Current every day smoker Past Alcohol Use History: Abuse, Daily, Heavy Past Drug Use History: None Reported - Past Family History Mother Family Medical History: No Reported History Father Family Medical History: No Reported History General Exam - General Exam Comments Initial Comments: General: Appears in no acute distress. HEAD: Normal with no signs of head trauma. EYES: PERRLA, EOMI, conjunctiva normal, no discharge. ENT: Hearing grossly intact, normal oropharynx. RESPIRATORY: Clear breath sounds bilaterally. No wheezes, rales, or rhonchi. C/V: Regular rate and rhythm. S1 and S2 auscultated, no edema, peripheral pulses 2+ and intact throughout ABD: Abdomen soft, nondistended. No significant tenderness to palpation. No guarding or rebound tenderness. No peritoneal signs. EXT: Normal range of motion, no obvious deformity SKIN: No rashes or lesions observed on exposed skin. NEURO: Alert and orient x 4. No obvious evidence of alcohol withdrawals. Limitations: no limitations Course Vital Signs 09/21/24 09/21/24 17:45 20:03 Temperature 98.0 F Pulse Rate 99 80 Respiratory 18 18 Rate Blood Pressure 159/99 142/94 O2 Sat by Pulse 98 97 Oximetry Medical Decision Making - Medical Decision Making Was pt. sent in by a medical professional or institution (, PA, POND SUPERVISOR, urgent care, hospital, or half-way...) When possible be specific @ -No Did you speak to anyone other than the patient for history (EMS, parent, family, police, friend...)? What history was obtained from this source @ -No Did you review nursing and triage notes (agree or disagree)? Why? @ -I reviewed and agree with nursing and triage notes Were old charts reviewed (outside hosp., previous admission, EMS record, old EKG, old radiological studies, urgent care reports/EKG's, half-way records)? Report findings @ -No old charts were reviewed Differential Diagnosis (chest pain, altered mental status, abdominal pain women, abdominal pain men, vaginal bleeding, weakness, fever, dyspnea, syncope, headache, dizziness, GI bleed, back pain, seizure, CVA, palpatations, mental health, musculoskeletal)? @ -Alcohol withdrawals, alcohol intoxication, dehydration, liver cirrhosis. This list is not all-inclusive. EKG interpreted by me (3pts min.). @ -As above X-rays interpreted by me (1pt min.). @ -Chest x-ray reveals no obvious acute cardiopulmonary process. CT interpreted by me (1pt min.). @ -None done U/S interpreted by me (1pt. min.). @ -None done What testing was considered but not performed or refused? (CT, X-rays, U/S, labs)? Why? @ -None What meds were considered but not given or refused? Why? @ -None Did you discuss the management of the patient with other professionals (professionals i.e. , PA, POND SUPERVISOR, lab, RT, psych nurse, clinical social worker, bessemer converter operator, teacher, hospital security officer, rn case management)? Give summary @ -Spoke with Dr. Kumar of [facility] who accepted the admission. Was smoking cessation discussed for >3mins.? @ -No Was critical care preformed (if so, how long)? @ -No Were there social determinants of health that impacted care today? How? (Homelessness, low income, unemployed, alcoholism, drug addiction, transportation, low edu. Level, literacy, decrease access to med. care, group home, rehab)? @ -No Was there de-escalation of care discussed even if they declined (Discuss DNR or withdrawal of care, Hospice)? DNR status @ -No What co-morbidities impacted this encounter? (DM, HTN, Smoking, COPD, CAD, Cancer, CVA, ARF, Chemo, Hep., AIDS, mental health diagnosis, sleep apnea, mor bid obesity)? @ -None Was patient admitted / discharged? Hospital course, mention meds given and ro [place], prescriptions, significant lab abnormalities, going to OR and other pertinent info. @ -Based on the patient's presentation and physical exam, presents emergency department complaining of early alcohol withdrawals as well as some epigastric discomfort with nausea and vomiting. Has a history of liver cirrhosis, chronic alcoholism with repair of esophageal varices. Does follow with Dr. Jesus. Has no other acute complaints. Patient placed on CIWA protocol. Given a small dose of Ativan. Patient started on IV fluid hydration and given Protonix as well. We will obtain abdominal labs. Exam is unremarkable. Patient was in agreement this plan. EKG shows no signs of acute ischemia. Laboratory studies are remarkable for thrombocytopenia with a platelet count of 72 which appears to be chronic for the patient. Slight elevation in AST and ALT. Alcohol is negative at this time. Otherwise unremarkable. Chest x-ray shows no obvious infectious process. I discussed results with patient. Due to his history of significant alcohol drawl's we will observe the patient overnight. Dr. Jesus will be consulted. Patient was in agreement this plan. Will continue the patient on [facility] protocol. I spoke with the admitting provider, Dr. Kumar of [facility] who accepted the admission. Undiagnosed new problem with uncertain prognosis? @ -No Drug Therapy requiring intensive monitoring for toxicity (Heparin, Nitro, Insulin, Cardizem)? @ -No Were any procedures done? @ -No Diagnosis/symptom? @ -Alcohol withdrawals Acute, or Chronic, or Acute on Chronic? @ -Acute Uncomplicated (without systemic symptoms) or Complicated (systemic symptoms)? @ -Complicated Side effects of treatment? @ -No Exacerbation, Progression, or Severe Exacerbation? @ -No Poses a threat to life or bodily function? How? (Chest pain, [place], [place], pneumonia, PE, COPD, DKA, ARF, appy, cholecystitis, CVA, Diverticulitis, Homicidal, Suicidal, threat to staff... and all critical care pts) @ -Potentially, yes - Lab Data Result diagrams: 09/21/24 18:56 09/21/24 18:56 Lab Results 09/21/24 09/21/24 09/21/24 Range/Units 18:56 18:56 18:56 WBC 3.07 L (4.50-10.00) 10*3/uL RBC 4.58 (4.40-5.60) 10*6/uL Hgb 14.8 (13.0-17.0) g/dL Hct 43.0 (39.6-50.0) % MCV 93.9 (80.0-97.0) fL MCH 32.3 H (27.0-32.0) pg MCHC 34.4 (32.0-37.0) g/dL Plt Count 72 L (140-440) 10*3/uL MPV 11.9 (9.5-12.2) fL Immature Gran % (Auto) 0.3 % Neutrophils % 75.9 % Lymphocytes % 7.8 % Monocytes % 12.4 % Eosinophils % 2.9 % Basophils % 0.7 % Immature Gran # 0.01 (0.00-0.04) 10*3/uL Neutrophils # 2.33 (1.80-7.70) 10*3/uL Lymphocytes # 0.24 L (0.90-5.00) 10*3/uL Monocytes # 0.38 (0.20-1.00) 10*3/uL Eosinophils # 0.09 (0.04-0.35) 10*3/uL Basophils # 0.02 (0.00-0.10) 10*3/uL Manual Slide Review Performed PT 11.9 (10.0-12.5) sec INR 1.1 (<1.2) APTT 25.2 (22.0-30.0) sec Sodium 140 (137-145) mmol/L Potassium 3.8 (3.5-5.1) mmol/L Chloride 103 (98-107) mmol/L Carbon Dioxide 24 (22-30) mmol/L Anion Gap 13 mmol/L BUN 6 L (9-20) mg/dL Creatinine 0.45 L (0.66-1.25) mg/dL Est GFR (CKD-EPI)AfAm >90 (>60 ml/min/1.73 sqM) Est GFR (CKD-EPI)NonAf >90 (>60 ml/min/1.73 sqM) Glucose 111 H (74-99) mg/dL Calcium 9.1 (8.4-10.2) mg/dL Total Bilirubin 1.0 (0.2-1.3) mg/dL AST 105 H (17-59) U/L ALT 77 H (4-49) U/L Alkaline Phosphatase 68 (38-126) U/L Total Protein 8.2 (6.3-8.2) g/dL Albumin 4.8 (3.5-5.0) g/dL Amylase 51 (30-110) U/L Lipase 94 (23-300) U/L Urine Color Urine Appearance (Clear) Urine pH (5.0-8.0) Ur Specific [place] (1.001-1.035) Urine Protein (Negative) Urine Glucose (UA) (Negative) Urine Ketones (Negative) Urine Blood (Negative) Urine Nitrite (Negative) Urine Bilirubin (Negative) Urine Urobilinogen (<2.0) mg/dL Ur Leukocyte Esterase (Negative) Serum Alcohol mg/dL Influenza Type A (PCR) (Not Detectd) Influenza Type B (PCR) (Not Detectd) RSV (PCR) (Not Detectd) SARS-CoV-2 (PCR) (Not Detectd) Blood Type Blood Type Confirm Blood Type Recheck Bld Type Recheck Status Antibody Screen Antibody Identification Antigen Identification Spec Expiration Date 09/21/24 09/21/24 09/21/24 Range/Units 18:56 18:56 18:58 WBC (4.50-10.00) 10*3/uL RBC (4.40-5.60) 10*6/uL Hgb (13.0-17.0) g/dL Hct (39.6-50.0) % MCV (80.0-97.0) fL MCH (27.0-32.0) pg MCHC (32.0-37.0) g/dL Plt Count (140-440) 10*3/uL MPV (9.5-12.2) fL Immature Gran % (Auto) % Neutrophils % % Lymphocytes % % Monocytes % % Eosinophils % % Basophils % % Immature Gran # (0.00-0.04) 10*3/uL Neutrophils # (1.80-7.70) 10*3/uL Lymphocytes # (0.90-5.00) 10*3/uL Monocytes # (0.20-1.00) 10*3/uL Eosinophils # (0.04-0.35) 10*3/uL Basophils # (0.00-0.10) 10*3/uL Manual Slide Review PT (10.0-12.5) sec INR (<1.2) APTT (22.0-30.0) sec Sodium (137-145) mmol/L Potassium (3.5-5.1) mmol/L Chloride (98-107) mmol/L Carbon Dioxide (22-30) mmol/L Anion Gap mmol/L BUN (9-20) mg/dL Creatinine (0.66-1.25) mg/dL Est GFR (CKD-EPI)AfAm (>60 ml/min/1.73 sqM) Est GFR (CKD-EPI)NonAf (>60 ml/min/1.73 sqM) Glucose (74-99) mg/dL Calcium (8.4-10.2) mg/dL Total Bilirubin (0.2-1.3) mg/dL AST (17-59) U/L ALT (4-49) U/L Alkaline Phosphatase (38-126) U/L Total Protein (6.3-8.2) g/dL Albumin (3.5-5.0) g/dL Amylase (30-110) U/L Lipase (23-300) U/L Urine Color Urine Appearance (Clear) Urine pH (5.0-8.0) Ur Specific [place] (1.001-1.035) Urine Protein (Negative) Urine Glucose (UA) (Negative) Urine Ketones (Negative) Urine Blood (Negative) Urine Nitrite (Negative) Urine Bilirubin (Negative) Urine Urobilinogen (<2.0) mg/dL Ur Leukocyte Esterase (Negative) Serum Alcohol mg/dL Influenza Type A (PCR) Not Detected (Not Detectd) Influenza Type B (PCR) Not Detected (Not Detectd) RSV (PCR) Not Detected (Not Detectd) SARS-CoV-2 (PCR) Not Detected (Not Detectd) Blood Type O Positive Blood Type Confirm O Positive Blood Type Recheck No Previous Record Bld Type Recheck Status CABO Indicated Antibody Screen POSITIVE Antibody Identification Anti-E Antigen Identification Little e Antigen - POSITIVE Spec Expiration Date 09/24/2024 - 235709/21/24 09/21/24 Range/Units 19:52 20:03 WBC (4.50-10.00) 10*3/uL RBC (4.40-5.60) 10*6/uL Hgb (13.0-17.0) g/dL Hct (39.6-50.0) % MCV (80.0-97.0) fL MCH (27.0-32.0) pg MCHC (32.0-37.0) g/dL Plt Count (140-440) 10*3/uL MPV (9.5-12.2) fL Immature Gran % (Auto) % Neutrophils % % Lymphocytes % % Monocytes % % Eosinophils % % Basophils % % Immature Gran # (0.00-0.04) 10*3/uL Neutrophils # (1.80-7.70) 10*3/uL Lymphocytes # (0.90-5.00) 10*3/uL Monocytes # (0.20-1.00) 10*3/uL Eosinophils # (0.04-0.35) 10*3/uL Basophils # (0.00-0.10) 10*3/uL Manual Slide Review PT (10.0-12.5) sec INR (<1.2) APTT (22.0-30.0) sec Sodium (137-145) mmol/L Potassium (3.5-5.1) mmol/L Chloride (98-107) mmol/L Carbon Dioxide (22-30) mmol/L Anion Gap mmol/L BUN (9-20) mg/dL Creatinine (0.66-1.25) mg/dL Est GFR (CKD-EPI)AfAm (>60 ml/min/1.73 sqM) Est GFR (CKD-EPI)NonAf (>60 ml/min/1.73 sqM) Glucose (74-99) mg/dL Calcium (8.4-10.2) mg/dL Total Bilirubin (0.2-1.3) mg/dL AST (17-59) U/L ALT (4-49) U/L Alkaline Phosphatase (38-126) U/L Total Protein (6.3-8.2) g/dL Albumin (3.5-5.0) g/dL Amylase (30-110) U/L Lipase (23-300) U/L Urine Color Colorless Urine Appearance Clear (Clear) Urine pH 8.0 (5.0-8.0) Ur Specific [place] 1.009 (1.001-1.035) Urine Protein Negative (Negative) Urine Glucose (UA) Negative (Negative) Urine Ketones Negative (Negative) Urine Blood Negative (Negative) Urine Nitrite Negative (Negative) Urine Bilirubin Negative (Negative) Urine Urobilinogen <2.0 (<2.0) mg/dL Ur Leukocyte Esterase Negative (Negative) Serum Alcohol <10 mg/dL Influenza Type A (PCR) (Not Detectd) Influenza Type B (PCR) (Not Detectd) RSV (PCR) (Not Detectd) SARS-CoV-2 (PCR) (Not Detectd) Blood Type Blood Type Confirm Blood Type Recheck Bld Type Recheck Status Antibody Screen Antibody Identification Antigen Identification Spec Expiration Date - EKG Data -: EKG Interpreted by Me EKG Comments: 12-lead Electrocardiogram Interpretation Note EKG was reviewed and interpreted by myself. 12-lead ECG performed at 1750 is interpreted by me as revealing normal sinus rhythm at a rate of 92 beats per minute. [place] is normal. [place] interval is 152 ms, QRS duration is 91 ms, QTc is 397 ms.. There were no ST or T wave abnormalities to suggest myocardial ischemia or injury. R wave progression across the precordium was satisfactory. By my interpretation this EKG is non-diagnostic for acute ischemia. Disposition Clinical Impression: Alcohol withdrawal Disposition: ADMITTED IP TO THIS HOSP Condition: Stable Time of Disposition: 20:52
[2024-09-22] MEDS: ONDANSETRON 4 MG/2 ML VIAL IVP PRN (07:46)
[2024-09-22] MEDS: PANTOPRAZOLE 40 MG/10 ML VIAL IV SCH (07:46)
[2024-09-22 09:47] VITALS: RESP 16
[2024-09-22 10:46] LABS: ALT 59 U/L (10-49); AST 67 U/L (14-35); Albumin 4.0 g/dL (3.8-4.9); Albumin/Globulin Ratio 1.60 Ratio (1.60-3.17); Alkaline Phosphatase 53 U/L (41-126); Anion Gap 11.50 mmol/L (4.00-12.00); BUN/Creat Ratio 10.12 Ratio (12.00-20.00); Blood Urea Nitrogen 8.1 mg/dL (9.0-27.0); Calcium 8.1 mg/dL (8.7-10.3); Carbon Dioxide 25.5 mmol/L (21.6-31.8); Chloride 103 mmol/L (96-109); Globulin 2.5 g/dL (1.6-3.3); Glucose 104 mg/dL (70-110); Potassium 3.6 mmol/L (3.5-5.5); Sodium 140 mmol/L (135-145); Total Protein 6.5 g/dL (6.2-8.2)
--- NOTE | 2024-09-22 11:41 | P.CONS ---
History of Present Illness - Reason for Consult Consult date: 09/22/24 Alcoholism, history of varices Requesting physician: Kadeem Newman - Chief Complaint Alcohol withdrawal - History of Present Illness This is a pleasant 48-year-old male with a history of alcoholism who had quit for about 5 years and started drinking again a few months ago. Patient tried to quit cold turkey at home however started going through alcohol withdrawal sym ptoms including nausea and vomiting with dry heaves and feeling very shaky. Patient came into the emergency department secondary to withdrawal symptoms. Patient has history of cirrhosis of the liver secondary to alcoholism again has not followed with gastroenterology in some time but used to follow secondary to liver cirrhosis and history of varices. Gastroenterology was consulted as patient is known to our services. Patient states he is feeling much better today. He is on the CIWA protocol. Admitting labs total bilirubin 1.0 AST 105 ALT 77 alkaline phosphatase with today's labs trending down total bilirubin 0.9 AST 67 ALT 59 alkaline phosphatase 53 Patient denies any abdominal pain nausea or vomiting. States he was having some epigastric muscle discomfort secondary to dry heaves but that has improved. Denies any hematemesis and denies any blood in his stool. Review of Systems REVIEW OF SYSTEMS: CARDIOPULMONARY: No chest pain or shortness of breath. Gastrointestinal: No abdominal pain. No nausea or vomiting. No hematemesis, coffee-ground emesis. No rectal bleeding, or melena. GENITOURINARY: No dysuria or hematuria. MUSCULOSKELETAL: Reports normal range of motion. SKIN: No rashes. No jaundice. ENDOCRINE: No chills, fevers. No excessive weight gain or loss. No polydipsia or polyuria. PSYCHIATRIC: Alcohol dependence/abuse. Alcohol withdrawal NEUROLOGY: No change in mental status. Denies dizziness, headache. ENT: Vision unremarkable. CONSTITUTIONAL: No recent weight loss. No fever, chills, night sweats. Past Medical History Past Medical History: Hypertension Additional Past Medical History / Comment(s): hep c with treatment. esophageal varices. withdrawal seizures History of Any Multi-Drug Resistant Organisms: MRSA Year Discovered:: 2011 MDRO Source:: LEG Past Surgical History: Orthopedic Surgery Additional Past Surgical History / Comment(s): lt knee SX Past Anesthesia/Blood Transfusion Reactions: No Reported Reaction Past Psychological History: No Psychological Hx Reported Smoking Status: Current every day smoker Past Alcohol Use History: Abuse, Daily, Heavy Additional Past Alcohol Use History / Comment(s): SMOKES CIGARS-1 DAILY Past Drug Use History: None Reported - Past Family History Mother Family Medical History: No Reported History Father Family Medical History: No Reported History Medications and Allergies Home Medications Medication Instructions Recorded Confirmed Type Omeprazole 20 mg PO DAILY 04/02/24 09/21/24 History Allergies Allergy/AdvReac Type Severity Reaction Status Date / Time erythromycin base Allergy Rash/Hives Verified 09/21/24 20:16 lorazepam [From Ativan] Allergy Rash/Hives Verified 09/21/24 20:16 Physical Exam Vitals: Vital Signs Temp Pulse Pulse Resp BP BP Pulse Ox 09/22/24 01:44 99.3 F 75 17 152/86 97 09/22/24 00:27 98.1 F 09/22/24 00:20 86 18 142/89 98 09/21/24 22:00 80 22 134/91 96 09/21/24 21:00 78 22 133/84 96 09/21/24 20:03 80 18 142/94 97 09/21/24 17:45 98.0 F 99 18 159/99 98 Intake and Output 09/21/24 09/22/24 09/22/24 22:59 06:59 14:59 Other: # Voids 1 Weight 80.739 kg 80.739 kg General appearance: The patient is alert, oriented, appears in no acute distress. HET: Head is normocephalic and atraumatic. Conjunctiva pink. Sclera anicteric. Neck: Supple without lymphadenopathy. Trachea midline. Heart: Regular. Lungs: Equal expansion, normal respiratory effort. Abdomen: Soft, nontender, nondistended. Skin: No rashes. No jaundice. Extremities: Normal skin color and turgor. No pedal edema. Neurological: No focal deficits. Alert and oriented x3. Results CBC & Chem 7: 09/21/24 18:56 09/22/24 05:42 Labs: Abnormal Lab Results - Last 24 Hours (Table) 09/21/24 09/21/24 Range/Units 18:56 18:56 WBC 3.07 L (4.50-10.00) 10*3/uL MCH 32.3 H (27.0-32.0) pg Plt Count 72 L (140-440) 10*3/uL Lymphocytes # 0.24 L (0.90-5.00) 10*3/uL BUN 6 L (9-20) mg/dL Creatinine 0.45 L (0.66-1.25) mg/dL Glucose 111 H (74-99) mg/dL AST 105 H (17-59) U/L ALT 77 H (4-49) U/L Assessment and Plan (1) Alcohol withdrawal syndrome Narrative/Plan: 48-year-old male known to GI services for alcohol cirrhosis of the liver with known esophageal varices in the past who had quit drinking about 5 years ago and recently relapsed and started drinking again a few months ago presented to the hospital with alcohol withdrawal symptoms for treatment. Patient has no evidence of acute hepatitis, no hematemesis. Recommend complete alcohol abstinence. Follow-up with gastroenterology in 1 to 2 weeks. No further workup plan. Current Visit: Yes Status: Acute Code(s): F10.939 - ALCOHOL USE, UNSPECIFIED WITH WITHDRAWAL, UNSPECIFIED SNOMED Code(s): 344626397 (2) ETOH abuse Current Visit: No Status: Acute Code(s): F10.10 - ALCOHOL ABUSE, UNCOMPLICATED SNOMED Code(s): 40062937 (3) Liver cirrhosis, alcoholic Current Visit: Yes Status: Acute Code(s): K70.30 - ALCOHOLIC CIRRHOSIS OF LIVER WITHOUT ASCITES SNOMED Code(s): 834849945 Plan: 1. Continue symptomatic supportive care 2. Continue CIWA protocol 3. Protonix 40 mg daily for GI prophylaxis 4. Antiemetics as needed 5. No further workup plan from gastroenterology 6. Rest of medical management per primary medical team Thank you for this consultation, patient is cleared from gastroenterology when medically stable. Dr. Kyle Jesus I agree with the dictator's note, documented as a scribe by Radha Young.
[2024-09-22] MEDS ORDERED: LORazepam 1 MG TAB PO PRN ×3 (12:11→12:13)
[2024-09-22 14:56] VITALS: BP 149/80; PULSE 78; TEMP 97.8
[2024-09-22 15:06] LABS: Basophils # (A) 0.02 X 10*3/uL (0.00-0.10); Basophils % (A) 0.6 %; Eosinophils # (A) 0.16 X 10*3/uL (0.04-0.35); Eosinophils % (A) 4.4 %; HCT 41.6 % (39.6-50.0); HGB 13.7 g/dL (13.0-17.0); Immature Grans, Automated 0.30 %; Immature Platelet Fraction 13.2 % (1.1-6.1); Lymphocytes # (A) 0.36 X 10*3/uL (0.90-5.00); Lymphocytes % (A) 9.9 %; MCH 32.5 pg (27.0-32.0); MCHC 32.9 g/dL (32.0-37.0); MCV 98.6 FL (80.0-97.0); Monocytes # (A) 0.46 X 10*3/uL (0.20-1.00); Monocytes % (A) 12.7 %; NRBC Per 100 WBC 0 X 10*3/uL (0.00-0.01); Neutrophils # (A) 2.62 X 10*3/uL (1.80-7.70); Neutrophils % (A) 72.1 %; Platelet Count 63 X 10*3/uL (140-440); RBC 4.22 X 10*6/uL (4.40-5.60); RDW 13.5 % (11.5-14.5); WBC 3.63 X 10*3/uL (4.50-10.00)
--- NOTE | 2024-09-22 17:27 | HP ---
HISTORY AND PHYSICAL HISTORY OF PRESENT ILLNESS: A 48-year-old male with history of alcoholism, started drinking a few months ago, cold turkey . He withdraws and heaves, feeling shaky, came to the ER for withdrawal symptoms. He has liver cirrhosis. He gastroenterology. He is on CIWA protocol. His LFTs are trending down. He denies any nausea or vomiting. REVIEW OF SYSTEMS: 14-point review of systems otherwise negative. PAST MEDICAL HISTORY: Hypertension, past CIWA treatment, esophageal varices, withdrawal seizures, daily alcohol abuse, current everyday smoker. HOME MEDICATIONS: 20 daily. PHYSICAL EXAMINATION: VITAL SIGNS: Temperature 98, pulse 80s to 70s, respiratory rate 16 to 20, O2 97% to 98%, blood pressure 130s to 140s over 80s to 90s. HEENT: Normocephalic, atraumatic. LUNGS: Equal expansion. ABDOMEN: Soft. SKIN: No jaundice. No skin turgor. LABORATORY DATA: White count is 3.0, hemoglobin is 14.8, platelets 72. BUN is 6, creatinine 0.45. ASSESSMENT AND PLAN: Liver cirrhosis, alcoholic, alcohol abuse, alcohol withdrawal syndrome CIWA, supportive care, Protonix, antiemetics. Monitor liver enzymes. Continue with CIWA. Prognosis guarded. MMODL / IJN: [id number] /
== END 2024-09-22 19:12 | disposition home or self-care (01) ==
LOC: EC 17:41 → 4SSUR 20:53
PROVIDERS: ADMIT Family Medicine; ATTEND Family Medicine
DX: F10.239 Alcohol dependence with withdrawal, unspecified (principal); K70.30 Alcoholic cirrhosis of liver without ascites; I85.00 Esophageal varices without bleeding; D69.6 Thrombocytopenia, unspecified; F17.290 Nicotine dependence, other tobacco product, uncomplicated; Z79.899 Other long term (current) drug therapy; Z88.1 Allergy status to other antibiotic agents; Z88.8 Allergy status to other drugs, medicaments and biological substances; Z11.52 Encounter for screening for COVID-19; Z11.59 Encounter for screening for other viral diseases
CPT/HCPCS: 96376; 96361 ×2; 96374; 96375; 99285; 36415; 93005; 86900; 86901; 80053 ×2; 82150; 83690; 85025 ×2; 85610; 85730; 86850; 86870; 81003; 87636; 71046; G0378 ×2; G0480; J2060; J2405 ×2; J2470 ×2; 80320